=== PATIENT | female | born 1940 | race Caucasian/White ===

== ENCOUNTER 2024-10-05 17:15 | Inpatient (IN) | payer MEDICARE ==
--- NOTE | 2024-10-05 17:29 | ED ---
General Adult HPI - General Chief complaint: Shortness of Breath Stated complaint: Breathing is poor and confused Time Seen by Provider: 10/05/24 17:23 Source: patient, family, RN notes reviewed Mode of arrival: wheelchair Limitations: no limitations - History of Present Illness Initial comments: Patient is an 84-year-old female present to the emergency department with difficulty in breathing. Symptoms have progressed over the past few days. Patient has been discharged from the hospital just a week with COPD and CHF. Patient does have increasing leg edema again. Occasional cough. No fever. Family is concerned the patient has been a little bit confused as well. - Related Data Allergies Allergy/AdvReac Type Severity Reaction Status Date / Time No Known Allergies Allergy Verified 10/05/24 17:21 Review of Systems ROS Statement: Those systems with pertinent positive or pertinent negative responses have been documented in the HPI. ROS Other: All systems not noted in ROS Statement are negative. Constitutional: Denies: fever Eyes: Denies: eye pain ENT: Denies: ear pain Respiratory: Reports: cough, dyspnea Cardiovascular: Reports: edema. Denies: chest pain Endocrine: Reports: fatigue Neurological: Reports: as per HPI, confusion Past Medical History Past Medical History: No Reported History Past Surgical History: No Surgical Hx Reported Past Psychological History: No Psychological Hx Reported Smoking Status: Never smoker Past Alcohol Use History: None Reported Past Drug Use History: None Reported General Exam Limitations: no limitations General appearance: other (Drowsy.) Head exam: Present: normocephalic Eye exam: Present: normal appearance Neck exam: Present: normal inspection Respiratory exam: Present: respiratory distress, decreased breath sounds Cardiovascular Exam: Present: regular rate, normal rhythm GI/Abdominal exam: Present: soft. Absent: tenderness Extremities exam: Present: pedal edema. Absent: calf tenderness Neurological exam: Present: alert Psychiatric exam: Present: flat affect Skin exam: Present: normal color Course Vital Signs 10/05/24 10/05/24 10/05/24 17:19 17:21 17:31 Temperature 98 F Pulse Rate 94 Respiratory 10 L 30 H Rate Blood Pressure 118/60 O2 Sat by Pulse 46 L Oximetry Fraction of 50 Inspired Oxygen (FIO2) 10/05/24 10/05/24 10/05/24 17:55 17:57 18:51 Temperature 98.3 F Pulse Rate 93 81 Respiratory 26 H 18 Rate Blood Pressure 153/63 125/60 O2 Sat by Pulse 88 L 96 Oximetry Fraction of 60 Inspired Oxygen (FIO2) EKG Findings - EKG Results: EKG: interpreted by ERMD (PVC present.), sinus rhythm, normal axis, normal QRS, normal ST/T Procedures - ABG Interpretation Ph: 7.12 PCO2: 98 PO2: 67 Interpretation: respiratory acidosis Medical Decision Making - Medical Decision Making Was pt. sent in by a medical professional or institution (, ROBERT, SILO MAN, urgent care, hospital, or [facility]...) When possible be specific @ -No Did you speak to anyone other than the patient for history (EMS, parent, family, police, friend...)? What history was obtained from this source @ -Daughters present and provides majority of history as patient is unable to provide much history. Did you review nursing and triage notes (agree or disagree)? Why? @ -I reviewed and agree with nursing and triage notes Were old charts reviewed (outside hosp., previous admission, EMS record, old EKG, old radiological studies, urgent care reports/EKG's, [facility] records)? Report findings @ -No old charts were reviewed Differential Diagnosis (chest pain, altered mental status, abdominal pain women, abdominal pain men, vaginal bleeding, weakness, fever, dyspnea, syncope, headache, dizziness, GI bleed, back pain, seizure, CVA, palpatations, mental health, musculoskeletal)? @ -Differential Dyspnea: Coronary syndrome, arrhythmia, tamponade, asthma, COPD, pulmonary embolism, pneumonia, pneumothorax, pulmonary effusion, anaphylaxis, diabetic ketoacidosis, flailed chest, pulmonary contusion, diaphragmatic rupture, anemia, neuromuscul ar, this is not meant to be an all-inclusive list. EKG interpreted by me (3pts min.). @ -As above X-rays interpreted by me (1pt min.). @ -Chest x-ray shows mild cephalization CT interpreted by me (1pt min.). @ -None done U/S interpreted by me (1pt. min.). @ -None done What testing was considered but not performed or refused? (CT, X-rays, U/S, labs)? Why? @ -None What meds were considered but not given or refused? Why? @ -None Did you discuss the management of the patient with other professionals (professionals i.e. Dr., PA, SILO MAN, lab, RT, psych nurse, social science research assistant, java security architect, teacher, sheriffs officer, case consultant)? Give summary @ -Case discussed with practitioner Kaylee Back will admit covering Dr. Gonzalez. Case also discussed with Dr. Goldberg who will consult with critical care. Was smoking cessation discussed for >3mins.? @ -No Was critical care preformed (if so, how long)? @ -33 minutes critical care time Were there social determinants of health that impacted care today? How? (Homelessness, low income, unemployed, alcoholism, drug addiction, transportation, low edu. Level, literacy, decrease access to med. care, detention, rehab)? @ -No Was there de-escalation of care discussed even if they declined (Discuss DNR or withdrawal of care, Hospice)? DNR status @ -No What co-morbidities impacted this encounter? (DM, HTN, Smoking, COPD, CAD, Cancer, CVA, ARF, Chemo, Hep., AIDS, mental health diagnosis, sleep apnea, morbid obesity)? @ -COPD and CHF history Was patient admitted / discharged? Hospital course, mention meds given and route, prescriptions, significant lab abnormalities, going to OR and other pertinent info. @ -Patient presents with confusion and dyspnea. Patient placed on BiPAP. High CO2. Patient will be admitted with pulmonary consult. Patient reevaluated and updated. Admission orders written. Undiagnosed new problem with uncertain prognosis? @ -No Drug Therapy requiring intensive monitoring for toxicity (Heparin, Nitro, Insulin, Cardizem)? @ -No Were any procedures done? @ -No Diagnosis/symptom? @ -Respiratory failure Acute, or Chronic, or Acute on Chronic? @ -Acute Uncomplicated (without systemic symptoms) or Complicated (systemic symptoms)? @ -Complicated with hypercarbia Side effects of treatment? @ -No Exacerbation, Progression, or Severe Exacerbation? @ -No Poses a threat to life or bodily function? How? (Chest pain, [place], [place], pneumonia, PE, COPD, DKA, ARF, appy, cholecystitis, CVA, Diverticulitis, Homicidal, Suicidal, threat to staff... and all critical care pts) @ -Threat to respiratory function and life - Lab Data Result diagrams: 10/05/24 17:40 10/05/24 17:40 Lab Results 10/05/24 10/05/24 10/05/24 Range/Units 17:40 17:40 17:40 WBC 56.04 H* (4.50-10.00) 10*3/uL RBC 4.33 (4.10-5.20) 10*6/uL Hgb 11.3 L (12.0-15.0) g/dL Hct 40.2 (37.2-46.3) % MCV 92.8 (80.0-97.0) fL MCH 26.1 L (27.0-32.0) pg MCHC 28.1 L (32.0-37.0) g/dL Plt Count 344 (140-440) 10*3/uL MPV 11.9 (9.5-12.2) fL Immature Gran % (Auto) 1.9 % Neutrophils % (Manual) 95 % Band Neuts % (Manual) 3 % Monocytes % (Manual) 2 % Immature Gran # 1.09 H (0.00-0.04) 10*3/uL Neutrophils # (Manual) 54.91 H (1.3-7.7) k/uL Monocytes # (Manual) 1.12 H (0-1.0) k/uL Nucleated RBCs 0 (0-0) /100 WBC Manual Slide Review Performed Stomatocytes Present PT 10.9 (10.0-12.5) sec INR 1.0 (<1.2) APTT 23.6 (22.0-30.0) sec Sample Site ABG pH (7.35-7.45) ABG pCO2 (35-45) mmHg ABG pO2 (83-108) mmHg ABG O2 Saturation (94-97) % Wilmar Test Hemoglobin (11.4-16.0) gm/dL FiO2 % Sodium 137 (137-145) mmol/L Potassium 5.0 (3.5-5.1) mmol/L Chloride 91 L (98-107) mmol/L Carbon Dioxide 35 H (22-30) mmol/L Anion Gap 11 mmol/L BUN 26 H (7-17) mg/dL Creatinine 0.73 (0.52-1.04) mg/dL Est GFR (CKD-EPI)AfAm 89 (>60 ml/min/1.73 sqM) Est GFR (CKD-EPI)NonAf 77 (>60 ml/min/1.73 sqM) Glucose 214 H (74-99) mg/dL Plasma Lactic Acid George (0.7-2.0) mmol/L Calcium 9.5 (8.4-10.2) mg/dL Magnesium 2.0 (1.6-2.3) mg/dL Total Bilirubin 0.8 (0.2-1.3) mg/dL AST 73 H (14-36) U/L ALT 48 H (4-34) U/L Alkaline Phosphatase 77 (38-126) U/L Troponin I (0.000-0.034) ng/mL NT-Pro-B Natriuret Pep 3020 pg/mL Total Protein 6.8 (6.3-8.2) g/dL Albumin 4.3 (3.5-5.0) g/dL Influenza Type A (PCR) (Not Detectd) Influenza Type B (PCR) (Not Detectd) RSV (PCR) (Not Detectd) SARS-CoV-2 (PCR) (Not Detectd) 10/05/24 10/05/24 10/05/24 Range/Units 17:40 17:40 17:40 WBC (4.50-10.00) 10*3/uL RBC (4.10-5.20) 10*6/uL Hgb (12.0-15.0) g/dL Hct (37.2-46.3) % MCV (80.0-97.0) fL MCH (27.0-32.0) pg MCHC (32.0-37.0) g/dL Plt Count (140-440) 10*3/uL MPV (9.5-12.2) fL Immature Gran % (Auto) % Neutrophils % (Manual) % Band Neuts % (Manual) % Monocytes % (Manual) % Immature Gran # (0.00-0.04) 10*3/uL Neutrophils # (Manual) (1.3-7.7) k/uL Monocytes # (Manual) (0-1.0) k/uL Nucleated RBCs (0-0) /100 WBC Manual Slide Review Stomatocytes PT (10.0-12.5) sec INR (<1.2) APTT (22.0-30.0) sec Sample Site ABG pH (7.35-7.45) ABG pCO2 (35-45) mmHg ABG pO2 (83-108) mmHg ABG O2 Saturation (94-97) % Wilmar Test Hemoglobin (11.4-16.0) gm/dL FiO2 % Sodium (137-145) mmol/L Potassium (3.5-5.1) mmol/L Chloride (98-107) mmol/L Carbon Dioxide (22-30) mmol/L Anion Gap mmol/L BUN (7-17) mg/dL Creatinine (0.52-1.04) mg/dL Est GFR (CKD-EPI)AfAm (>60 ml/min/1.73 sqM) Est GFR (CKD-EPI)NonAf (>60 ml/min/1.73 sqM) Glucose (74-99) mg/dL Plasma Lactic Acid George 4.2 H* (0.7-2.0) mmol/L Calcium (8.4-10.2) mg/dL Magnesium (1.6-2.3) mg/dL Total Bilirubin (0.2-1.3) mg/dL AST (14-36) U/L ALT (4-34) U/L Alkaline Phosphatase (38-126) U/L Troponin I 0.080 H* (0.000-0.034) ng/mL NT-Pro-B Natriuret Pep pg/mL Total Protein (6.3-8.2) g/dL Albumin (3.5-5.0) g/dL Influenza Type A (PCR) Not Detected (Not Detectd) Influenza Type B (PCR) Not Detected (Not Detectd) RSV (PCR) Not Detected (Not Detectd) SARS-CoV-2 (PCR) Not Detected (Not Detectd) 10/05/24 Range/Units 17:44 WBC (4.50-10.00) 10*3/uL RBC (4.10-5.20) 10*6/uL Hgb (12.0-15.0) g/dL Hct (37.2-46.3) % MCV (80.0-97.0) fL MCH (27.0-32.0) pg MCHC (32.0-37.0) g/dL Plt Count (140-440) 10*3/uL MPV (9.5-12.2) fL Immature Gran % (Auto) % Neutrophils % (Manual) % Band Neuts % (Manual) % Monocytes % (Manual) % Immature Gran # (0.00-0.04) 10*3/uL Neutrophils # (Manual) (1.3-7.7) k/uL Monocytes # (Manual) (0-1.0) k/uL Nucleated RBCs (0-0) /100 WBC Manual Slide Review Stomatocytes PT (10.0-12.5) sec INR (<1.2) APTT (22.0-30.0) sec Sample Site lbrac ABG pH 7.13 L* (7.35-7.45) ABG pCO2 >98 H* (35-45) mmHg ABG pO2 67 L (83-108) mmHg ABG O2 Saturation 86.4 L (94-97) % Wilmar Test Yes Hemoglobin 10.8 L (11.4-16.0) gm/dL FiO2 50 % Sodium (137-145) mmol/L Potassium (3.5-5.1) mmol/L Chloride (98-107) mmol/L Carbon Dioxide (22-30) mmol/L Anion Gap mmol/L BUN (7-17) mg/dL Creatinine (0.52-1.04) mg/dL Est GFR (CKD-EPI)AfAm (>60 ml/min/1.73 sqM) Est GFR (CKD-EPI)NonAf (>60 ml/min/1.73 sqM) Glucose (74-99) mg/dL Plasma Lactic Acid George (0.7-2.0) mmol/L Calcium (8.4-10.2) mg/dL Magnesium (1.6-2.3) mg/dL Total Bilirubin (0.2-1.3) mg/dL AST (14-36) U/L ALT (4-34) U/L Alkaline Phosphatase (38-126) U/L Troponin I (0.000-0.034) ng/mL NT-Pro-B Natriuret Pep pg/mL Total Protein (6.3-8.2) g/dL Albumin (3.5-5.0) g/dL Influenza Type A (PCR) (Not Detectd) Influenza Type B (PCR) (Not Detectd) RSV (PCR) (Not Detectd) SARS-CoV-2 (PCR) (Not Detectd) Critical Care Time Critical Care Time: Yes Disposition Clinical Impression: Acute exacerbation of chronic obstructive pulmonary disease, Acute respiratory failure Disposition: ADMITTED IP TO THIS HOSP Condition: Serious Is patient prescribed a controlled substance at d/c from ED?: No Referrals: Garcia Gonzalez III, MD [Primary Care Provider] - 1-2 days Time of Disposition: 19:44
[2024-10-05 17:48] LABS: ABG PO2 67 mmHg (83-108); Allen Test Performed? Yes
[2024-10-05] MEDS: methylPREDNISolone SOD SUCCI 125 MG/2 ML VIAL IV STA (17:48)
[2024-10-05 17:55] LABS: HCT 40.2 % (37.2-46.3); HGB 11.3 g/dL (12.0-15.0); MCH 26.1 pg (27.0-32.0); MCHC 28.1 g/dL (32.0-37.0); MCV 92.8 fL (80.0-97.0); Platelet Count 344 10*3/uL (140-440); RBC 4.33 10*6/uL (4.10-5.20); RDW 16.5 % (11.5-14.5)
[2024-10-05 17:57] LABS: ABG PCO2 >98 mmHg (35-45); ABG PH 7.13 (7.35-7.45)
[2024-10-05 18:08] LABS: WBC 56.04 10*3/uL (4.50-10.00)
[2024-10-05 18:10] LABS: INR 1.0 (<1.2); Partial Thromboplastin Time 23.6 sec (22.0-30.0); Prothrombin Time 10.9 sec (10.0-12.5)
[2024-10-05 18:19] LABS: ALT 48 U/L (4-34); AST 73 U/L (14-36); African American GFR (CKD) 89 (>60 ml/min/1.73 sqM); Albumin 4.3 g/dL (3.5-5.0); Alkaline Phosphatase 77 U/L (38-126); Anion Gap 11 mmol/L; Blood Urea Nitrogen 26 mg/dL (7-17); Calcium 9.5 mg/dL (8.4-10.2); Carbon Dioxide 35 mmol/L (22-30); Chloride 91 mmol/L (98-107); Glucose 214 mg/dL (74-99); Magnesium 2.0 mg/dL (1.6-2.3); Non-African American GFR(CKD) 77 (>60 ml/min/1.73 sqM); Potassium 5.0 mmol/L (3.5-5.1); Sodium 137 mmol/L (137-145); Total Protein 6.8 g/dL (6.3-8.2)
[2024-10-05 18:26] LABS: NT-Pro-B-Type Natriuretic Pept 3020 pg/mL
[2024-10-05 18:36] LABS: RSV Not Detected (Not Detectd)
--- NOTE | 2024-10-05 18:39 | XR ---
EXAMINATION TYPE: XR chest 1V portable DATE OF EXAM: 10/05/2024 6:22 PM COMPARISON: Chest radiographs from TECHNIQUE: XR chest 1V portable Portable AP radiograph of the chest. CLINICAL INDICATION:Female, 84 years old with history of diego; FINDINGS: Lungs/Pleura: There is no evidence of pleural effusion, focal consolidation, or pneumothorax. Diffus e interstitial prominence. Heart/mediastinum: Cardiomediastinal silhouette is enlarged. Atherosclerotic calcifications are seen in the aorta. Musculoskeletal: No acute osseous pathology. IMPRESSION: Cardiomegaly and diffuse interstitial prominence. Correlate with BNP for congestive heart failure. [facility], , 10/05/2024 6:36 PM
[2024-10-05] MEDS: AZITHROMYCIN 500 MG in SODIUM CHLORIDE 0.9% 250 ML IVPB STA (18:43)
[2024-10-05 19:08] LABS: Monocytes # (M) 1.12 k/uL (0-1.0); Neutrophils # (M) 54.91 k/uL (1.3-7.7); Neutrophils % (M) 95 %; Total Cells Counted 100
[2024-10-05 19:09] LABS: Stomatocytes Present
[2024-10-05] MEDS ORDERED: IPRATROPIUM-ALBUTEROL 3 ML NEB INHALATION PRN (19:45)
[2024-10-05] MEDS ORDERED: NALOXONE 0.4 MG/ML 1 ML VIAL IVP PRN (19:45)
[2024-10-05 20:03] LABS: ABG PO2 92 mmHg (83-108); Allen Test Performed? Yes
[2024-10-05 20:13] LABS: ABG PH 7.04 (7.35-7.45)
[2024-10-05 20:14] LABS: ABG PCO2 >98 mmHg (35-45)
[2024-10-05 23:37] LABS: Allen Test Performed? Yes
[2024-10-05 23:38] LABS: ABG PO2 84 mmHg (83-108)
[2024-10-05 23:54] LABS: ABG PCO2 >98 mmHg (35-45); ABG PH 7.01 (7.35-7.45)
[2024-10-06] MEDS: PROPOFOL 10 MG/ML 20 ML VIAL IV ONE (00:32)
[2024-10-06] MEDS: methylPREDNISolone SOD SUCCI 125 MG/2 ML VIAL IV SCH (00:33)
[2024-10-06] MEDS: FUROSEMIDE 10 MG/ML 2 ML VIAL IV SCH (00:46)
[2024-10-06 00:54] LABS: ABG HCO3 28 mmol/L (21-25); ABG PO2 71 mmHg (83-108); ABG TCO2 31 mmol/L (19-24); Allen Test Performed? Yes
--- NOTE | 2024-10-06 01:37 | P.CNPUL ---
History of Present Illness Consult date: 10/06/24 Requesting physician: Michele Farrell Reason for consult: other (Respiratory failure) Chief complaint: Altered mental status, shortness of breath History of present illness: Patient is an 84-year-old female with little documented past medical history. She was living in [place] and has recently moved back to [place]. Her is recently . She has no children. She does have a niece who was contacted and provided limited information. Apparently, patient was recently hospitalized at [facility] for acute COPD and CHF exacerbation and released last week. Presents to the emergency department yesterday evening with increased work of breathing increased. Leg edema was noted. Family was concerned that the patient was confused. ABG consistent with severe hypoxemic and hypercapnic respiratory failure. She was placed on BiPAP in the ED. Chest x-ray showing enlarged cardiac silhouette with diffuse interstitial prominence. NT-proBNP was elevated at 3020. Additional labs including a CBC with a severely elevated WBC count of 56, hemoglobin 11.3 g/dL, platelets 344. CMP: Sodium 137, potassium 5, chloride 91, serum bicarb 35, BUN 26, creatinine 0.73, glucose 214. Lactic was 4.2 and is down to 2. LFTs mildly elevated. Troponin 0.08. Viral 4 Plex negative for influenza A/B, RSV, COVID. Patient currently being evaluated in the emergency department trauma bay 3. She is difficult to arouse, only grimaces to painful stimuli. I asked for repeat blood gas which does not show any significant improvement in her acid-base balance, PO2 was 84, pCO2 greater than 98, pH of 7.01. She is on BiPAP with settings 14/7 and FiO2 of 60%. Tidal volumes are low around 150 cc. I did call the patient's listed next of kin, who is a niece, and they previously discussed that the patient is a full code and okay with intubation. Review of Systems ROS unobtainable: due to mental status Past Medical History Smoking Status: Unknown if ever smoked Past Alcohol Use History: Unable to Obtain Past Drug Use History: Unable to Obtain Medications and Allergies Home Medications Medication Instructions Recorded Confirmed Type Donepezil [Aricept] 5 mg PO HS 10/05/24 10/05/24 History Furosemide [Lasix] 20 mg PO DAILY 10/05/24 10/05/24 History Losartan [Cozaar] 25 mg PO DAILY 10/05/24 10/05/24 History Pantoprazole [Protonix] 40 mg PO DAILY 10/05/24 10/05/24 History Potassium Chloride ER [K-Dur 10] 10 meq PO DAILY 10/05/24 10/05/24 History predniSONE See Taper PO DAILY 10/05/24 10/05/24 History Allergies Allergy/AdvReac Type Severity Reaction Status Date / Time No Known Allergies Allergy Verified 10/05/24 20:27 Physical Exam Vitals: Vital Signs Temp Pulse Resp BP Pulse Ox FiO2 10/06/24 00:37 60 10/06/24 00:14 78 19 147/62 98 10/05/24 23:44 50 10/05/24 22:25 81 28 H 148/74 95 10/05/24 21:01 80 24 147/76 94 L 10/05/24 20:11 50 10/05/24 18:51 81 18 125/60 96 10/05/24 17:57 60 10/05/24 17:55 98.3 F 93 26 H 153/63 88 L 10/05/24 17:31 50 10/05/24 17:21 30 H 10/05/24 17:19 98 F 94 10 L 118/60 46 L Intake and Output 10/05/24 10/05/24 10/06/24 14:59 22:59 06:59 Intake Total 0.093 Balance 0.093 Intake: Intake, IV Titration 0.093 Amount propofoL 1,000 mg In 0.093 Empty Bag 1 bag @ 15 MCG/ KG/MIN 5.593 mls/hr IV . [id number] [facility] Rx#:[id number] Other: Weight 62.142 kg GENERAL EXAM: Stuporous, 84-year-old female, on BiPAP with settings 14/7 FiO2 of 60%. Generating tidal volumes of 100 to 150 cc. HEAD: Normocephalic and atraumatic EYES: Normal reaction of pupils, equal size. NOSE: Clear with pink turbinates. THROAT: No erythema or exudates. NECK: No masses, no JVD. CHEST: No chest wall deformity. LUNGS: Equal air entry with basilar crackles. On BiPAP as outlined above CVS: S1 and S2 normal with no audible murmur, regular rhythm. No extra heart sounds ABDOMEN: No hepatosplenomegaly, active bowel sounds, no guarding or rigidity. SPINE: No scoliosis or deformity SKIN: No rashes CENTRAL NERVOUS SYSTEM: Only grimaces to painful stimuli, no focal deficits, withdraws to pain in all 4 extremities. EXTREMITIES: There is no peripheral edema, clubbing, or cyanosis. Peripheral pulses are intact. Results - Laboratory Findings CBC and BMP: 10/05/24 17:40 10/05/24 17:40 ABG ABG pH 7.01 (7.35-7.45) L* 10/05/24 23:33 ABG pCO2 >98 mmHg (35-45) H* 10/05/24 23:33 ABG pO2 84 mmHg (83-108) 10/05/24 23:33 ABG O2 Saturation 92.1 % (94-97) L 10/05/24 23:33 PT/INR, D-dimer PT 10.9 sec (10.0-12.5) 10/05/24 17:40 INR 1.0 (<1.2) 10/05/24 17:40 Abnormal lab findings: Abnormal Labs 10/05/24 10/05/24 10/05/24 17:40 17:40 17:40 WBC 56.04 H* Hgb 11.3 L MCH 26.1 L MCHC 28.1 L Immature Gran # 1.09 H Neutrophils # (Manual) 54.91 H Monocytes # (Manual) 1.12 H ABG pH ABG pCO2 ABG pO2 ABG O2 Saturation Hemoglobin Chloride 91 L Carbon Dioxide 35 H BUN 26 H Glucose 214 H Plasma Lactic Acid George 4.2 H* AST 73 H ALT 48 H Troponin I 10/05/24 10/05/24 10/05/24 17:40 17:44 19:59 WBC Hgb MCH MCHC Immature Gran # Neutrophils # (Manual) Monocytes # (Manual) ABG pH 7.13 L* 7.04 L* ABG pCO2 >98 H* >98 H* ABG pO2 67 L ABG O2 Saturation 86.4 L 93.3 L Hemoglobin 10.8 L 11.0 L Chloride Carbon Dioxide BUN Glucose Plasma Lactic Acid George AST ALT Troponin I 0.080 H* 10/05/24 23:33 WBC Hgb MCH MCHC Immature Gran # Neutrophils # (Manual) Monocytes # (Manual) ABG pH 7.01 L* ABG pCO2 >98 H* ABG pO2 ABG O2 Saturation 92.1 L Hemoglobin Chloride Carbon Dioxide BUN Glucose Plasma Lactic Acid George AST ALT Troponin I - Diagnostic Findings Chest x-ray: image reviewed Assessment and Plan Assessment: Acute hypoxemic and hypercapnic respiratory failure, failed BiPAP trial, and is going to be intubated and placed on the mechanical ventilator. Chest x-ray showing enlarged cardiac silhouette with diffuse interstitial prominence. NT- proBNP was elevated at 3020. Acute CHF exacerbation, unknown ejection fraction Acute COPD exacerbation Severe leukocytosis Lactic acidemia, improved Elevated troponins, likely related supply/demand mismatch History of hypertension Plan: I did have a discussion with the patient's niece who is listed as next of kin. Patient's is and she has no children. We are unable to get a hold of any siblings at this time. She states that she has been making medical decisions for her aunt and patient is to be a full code. BIOMEDICAL SCIENTIST was called and performed rapid sequence intubation. Original ventilator settings, assist-control, respiratory rate 20, tidal volume 400, FiO2 100%, PEEP of 5 Respiratory rate increased to 26 breaths/min, wean FiO2 as tolerated Repeat ABG showing some improvement in patient's acid-base balance DuoNebs [id number], formoterol inhalation, budesonide inhalation, and continue IV Solu-Medrol Use propofol for sedation Add empiric antibiotics Obtain sputum culture Viral 4 Plex negative for influenza A/B, SV, COVID Add Lasix 20 mg twice daily Transthoracic echocardiogram if more recent study not available DVT prophylaxis with subcu heparin GI prophylaxis: Protonix Case will be reviewed with my supervising physician, additional recommendations forthcoming I have personally seen and examined the patient, performed the documentation and the assessment and plan as written. Number of minutes spent on the visit:20 Time with Patient: Greater than 30
--- NOTE | 2024-10-06 02:00 | XR ---
EXAM: XR Chest, 1 View CLINICAL HISTORY: ITS.REASON XR Reason: Tube placement TECHNIQUE: Frontal view of the chest. COMPARISON: 10/05/2024 IMPRESSION: Tip of endotracheal tube is about 3.8 cm above the fanta. Side hole of enteric tube is in the body of the stomach. No substantial change otherwise.
[2024-10-06] MEDS: SODIUM CHLORIDE 0.9% 1,000 ML IV ONE (03:33)
[2024-10-06 06:01] LABS: ABG HCO3 37 mmol/L (21-25); ABG PCO2 53 mmHg (35-45); ABG PH 7.45 (7.35-7.45); ABG TCO2 39 mmol/L (19-24); Allen Test Performed? Yes
[2024-10-06 06:47] LABS: ABG PCO2 77 mmHg (35-45); ABG PH 7.18 (7.35-7.45)
[2024-10-06 06:48] LABS: ABG PO2 420 mmHg (83-108)
[2024-10-06] MEDS: IPRATROPIUM-ALBUTEROL 3 ML NEB INHALATION STA (08:01)
[2024-10-06] MEDS: IPRATROPIUM-ALBUTEROL 3 ML NEB INHALATION SCH (08:01)
[2024-10-06] MEDS: BUDESONIDE 1 MG/2 ML NEBU INHALATION SCH (08:07)
[2024-10-06] MEDS: FORMOTEROL FUMARATE 20 MCG/2 ML NEBU INHALATION SCH (08:07)
--- NOTE | 2024-10-06 08:12 | XR ---
EXAMINATION TYPE: XR chest 1V portable DATE OF EXAM: 10/06/2024 5:38 AM COMPARISON: 10/06/2024 CLINICAL INDICATION: Female, 84 years old with history of Tube placement, FINDINGS: Indwelling tubes and catheters are unchanged. Scattered upper lobe patchy densities persist unchanged. Stable appearance of the cardio-mediastinal structures at this time. IMPRESSION: 1. Stable portable chest. Clinical correlation and follow up until resolution is recommended. [facility], , 10/06/2024 8:10 AM
[2024-10-06] MEDS: CHLORHEXIDINE GLUCONATE 15 ML CUP MUCOUS MEM SCH (09:38)
[2024-10-06 11:12] LABS: Glucose,Whole Blood 120 mg/dL (70-110)
--- NOTE | 2024-10-06 13:59 | OP ---
OPERATIVE REPORT DATE OF SERVICE : PROCEDURE PERFORMED: Placement of a right radial arterial line. PREOPERATIVE DIAGNOSIS: Acute hypoxic and hypercapnic respiratory failure. POSTOPERATIVE DIAGNOSIS: Acute hypoxic and hypercapnic respiratory failure. ANESTHESIA USED: None deployed. PROCEDURE IN DETAIL: The patient was placed in a supine position. Right wrist was prepared in a sterile fashion. Drapes were applied. The right radial artery was palpated, easily cannulated and a guidewire was placed. A Cook's catheter was inserted over the guidewire, the guidewire was removed. Good blood flow, good waveform. Line was secured using 3.0 silk sutures. No complications. Procedure was well tolerated. MMODL / IJN: [id number] /
[2024-10-06 14:48] LABS: ABG HCO3 39 mmol/L (21-25); ABG PCO2 58 mmHg (35-45); ABG PH 7.44 (7.35-7.45); ABG PO2 86 mmHg (83-108); ABG TCO2 41 mmol/L (19-24)
[2024-10-06 14:51] LABS: Allen Test Performed? no
[2024-10-06 17:54] LABS: Glucose,Whole Blood 159 mg/dL (70-110)
[2024-10-06] MEDS: AZITHROMYCIN 500 MG in SODIUM CHLORIDE 0.9% 250 ML IVPB SCH (20:00)
--- NOTE | 2024-10-06 21:53 | HP ---
HISTORY AND PHYSICAL CHIEF COMPLAINT: Shortness of breath and change in mental status. HISTORY OF PRESENT ILLNESS: This 84-year-old with a past medical history of no significant medical issues, recently moved back to [place]. Apparently, the patient has presented with shortness of breath and change in mental status. The patient was recently admitted with COPD and CHF. The patient had features of acute hypoxic respiratory failure. The viral titers are negative, and the patient admitted to ICU and being mechanically ventilated at this time. There is some interstitial prominence noted. The patient failed BiPAP trial. The patient is unable to give a coherent history. Most history is taken by discussion with staff, review of chart at this time. PAST MEDICAL HISTORY: History of COPD and CHF. Rest of the history and chart is also reviewed. MEDICATIONS: Prednisone taper. Doses and rest of medications reviewed. ALLERGIES: None. FAMILY HISTORY: Could not could not be taken. SOCIAL HISTORY: Could not could not be taken. REVIEW OF SYSTEMS: Could not could not be taken. PHYSICAL EXAMINATION: VITAL SIGNS: Pulse is 81, blood pressure 118/64, and respirations 20. HEENT: Conjunctivae normal. NECK: No JVD. CARDIOVASCULAR: S1, S2. RESPIRATIONS: Breath sounds diminished at the bases. No rhonchi. No crackles. ABDOMEN: Soft. LEGS: No edema NERVOUS SYSTEM: Nonfocal. LABORATORY DATA: Noted. ASSESSMENT: 1. Shortness of breath and acute hypoxic respiratory failure, possibly secondary to chronic obstructive pulmonary disease and congestive heart failure acute exacerbation. 2. Elevated WBC. 3. Possible acute tracheobronchitis and possible pneumonia. 4. Troponin, 0.080. 5. Lactic acidemia. 6. Elevated troponin, possibly from supply-demand mismatch. RECOMMENDATIONS: Recommend to continue current management and continue symptomatic treatment. Continue with broad-spectrum IV antibiotics, bronchodilators, IV steroids. I would also recommend 2D echo with Doppler and Cardiology consultation also to complete the workup. The BNP is 3020 at this time. Viral titers are negative. We will obtain the cultures also. See orders for details. MMODL / IJN: [id number] /
[2024-10-07] MEDS ORDERED: ACETAMINOPHEN TAB 325 MG TAB PO PRN (00:05)
[2024-10-07 05:17] LABS: Basophils # (A) 0.06 10*3/uL (0.00-0.10); Basophils % (A) 0.2 %; Eosinophils # (A) 0.00 10*3/uL (0.04-0.35); Eosinophils % (A) 0.0 %; HCT 29.9 % (37.2-46.3); Lymphocytes # (A) 0.39 10*3/uL (0.90-5.00); Lymphocytes % (A) 1.3 %; MCH 25.7 pg (27.0-32.0); MCHC 30.1 g/dL (32.0-37.0); Monocytes # (A) 0.49 10*3/uL (0.20-1.00); Monocytes % (A) 1.7 %; Neutrophils # (A) 28.19 10*3/uL (1.80-7.70); Neutrophils % (A) 95.7 %; Platelet Count 287 10*3/uL (140-440); RBC 3.50 10*6/uL (4.10-5.20); RDW 17.1 % (11.5-14.5); WBC 29.46 10*3/uL (4.50-10.00)
[2024-10-07 05:25] LABS: HGB 9.0 g/dL (12.0-15.0); MCV 85.4 fL (80.0-97.0)
[2024-10-07 05:32] LABS: African American GFR (CKD) 54 (>60 ml/min/1.73 sqM); Anion Gap 7 mmol/L; Blood Urea Nitrogen 43 mg/dL (7-17); Calcium 9.1 mg/dL (8.4-10.2); Carbon Dioxide 37 mmol/L (22-30); Chloride 91 mmol/L (98-107); Glucose 135 mg/dL (74-99); Non-African American GFR(CKD) 47 (>60 ml/min/1.73 sqM); Potassium 3.6 mmol/L (3.5-5.1); Sodium 135 mmol/L (137-145)
[2024-10-07] MEDS ORDERED: Potassium Replacement Protocol 1 EACH MISC MISCELLANE PRN (06:04)
[2024-10-07 06:05] LABS: ABG PCO2 56 mmHg (35-45); ABG PH 7.46 (7.35-7.45); ABG PO2 82 mmHg (83-108); ABG TCO2 42 mmol/L (19-24)
[2024-10-07 06:18] LABS: ABG HCO3 40 mmol/L (21-25); Allen Test Performed? No
[2024-10-07] MEDS: POTASSIUM BICARBONATE/CIT AC 20 MEQ TABLET.EFF NG-TUBE SCH (06:47)
--- NOTE | 2024-10-07 07:43 | P.CRDCN ---
History of Present Illness Consult date: 10/07/24 History of present illness: The patient is an 84-year-old female patient who we consulted to see in the ICU for heart failure. Currently the patient is intubated on mechanical ventilation. The patient presented to the emergency department with progressive shortness of breath and she was found to be hypoxic and hypercapnic. She did not respond to BiPAP. Subsequently she was intubated and placed on mechanical ventilation. She is known to have COPD and CHF of unknown etiology. Echocardiogram was performed and still pending. No indication that the patient was experiencing any symptoms of chest pain or chest discomfort. She was noted to have bilateral lower extremities pitting edema. The chest x-ray showed finding consistent with COPD with small bilateral pleural effusion. The patient was placed on Lasix IV and also she was placed on antibiotic and she is getting treated for COPD/pneumonia. No previous medical records in EMR at this point. The echo was performed last night we will follow-up on that. Blood work showed anemia with a hemoglobin around 9. No NT-proBNP was ordered. Sodium and potassium are within normal limits. GFR is at 54. The physical examination is remarkable for regular rhythm with a systolic murmur at the right upper sternal border and bilateral rhonchi and also bilateral lower extremities pitting edema was noted. Since the patient was placed on Lasix she has been responding well. Assessment Acute hypoxic and hypercapnic respiratory failure secondary to a combination of COPD and CHF CHF exacerbation of unknown etiology Multiple comorbid conditions Plan Follow-up on the echocardiogram which was performed yesterday Continue monitor the kidney function and electrolytes Continue Lasix for additional 24 hours Continue the treatment for COPD and possible underlying pneumonia Further recommendation to follow Past Medical History Past Medical History: No Reported History History of Any Multi-Drug Resistant Organisms: Unobtainable Past Surgical History: No Surgical Hx Reported Past Psychological History: No Psychological Hx Reported Smoking Status: Former smoker Past Alcohol Use History: Unable to Obtain Past Drug Use History: Unable to Obtain Medications and Allergies Home Medications Medication Instructions Recorded Confirmed Type Donepezil [Aricept] 5 mg PO HS 10/05/24 10/05/24 History Furosemide [Lasix] 20 mg PO DAILY 10/05/24 10/05/24 History Losartan [Cozaar] 25 mg PO DAILY 10/05/24 10/05/24 History Pantoprazole [Protonix] 40 mg PO DAILY 10/05/24 10/05/24 History Potassium Chloride ER [K-Dur 10] 10 meq PO DAILY 10/05/24 10/05/24 History predniSONE See Taper PO DAILY 10/05/24 10/05/24 History Allergies Allergy/AdvReac Type Severity Reaction Status Date / Time No Known Allergies Allergy Verified 10/05/24 20:27 Physical Exam Vitals: Vital Signs Temp Pulse Resp BP Pulse Ox FiO2 10/07/24 07:00 58 L 18 115/56 96 10/07/24 06:00 58 L 18 99/49 99 10/07/24 05:00 60 18 104/94 100 10/07/24 04:33 40 10/07/24 04:00 69 18 106/57 98 40 10/07/24 03:00 65 18 113/51 99 10/07/24 02:00 65 18 106/57 100 10/07/24 01:00 62 18 98/42 99 10/07/24 00:49 40 10/07/24 00:05 70 18 98/44 98 10/07/24 00:00 98.1 F 67 18 109/50 98 40 10/06/24 23:00 78 18 94/43 99 10/06/24 22:00 90 25 H 98 10/06/24 21:00 81 19 92 L 10/06/24 20:56 82 10/06/24 20:40 80 10/06/24 20:37 40 10/06/24 20:00 98.7 F 78 20 98 50 10/06/24 19:00 73 18 108/49 100 10/06/24 18:00 81 18 115/57 98 10/06/24 16:00 98.5 F 87 18 98 40 10/06/24 15:06 76 10/06/24 15:00 86 18 118/62 95 10/06/24 14:49 73 10/06/24 14:36 40 10/06/24 14:00 73 18 118/54 96 10/06/24 13:00 71 18 97/67 95 10/06/24 12:00 98.8 F 73 19 106/57 97 40 10/06/24 11:00 81 26 H 119/65 10/06/24 10:30 78 27 H 106/57 10/06/24 10:00 76 26 H 97/49 10/06/24 09:30 80 27 H 100/51 10/06/24 09:00 72 26 H 90/49 10/06/24 08:30 98.7 F 73 26 H 110/55 98 40 10/06/24 08:28 72 10/06/24 08:07 74 10/06/24 08:06 40 10/06/24 08:00 40 10/06/24 07:47 40 Intake and Output 10/06/24 10/07/24 10/07/24 22:59 06:59 14:59 Intake Total 477.589 288.826 13 Output Total 260 340 30 Balance 217.589 -51.174 -17 Intake: IV 339 104 13 0.9 80 80 10 Azithromycin 500 mg In 250 Sodium Chloride 0.9% 250 ml @ 250 mls/hr IVPB DAILY [facility] Rx#:[id number] Pressure Bag 9 24 3 Intake, IV Titration 138.589 184.826 Amount propofoL 1,000 mg In 138.589 184.826 Empty Bag 1 bag @ 15 MCG/ KG/MIN 5.593 mls/hr IV . [id number] [facility] Rx#:[id number] Output: Urine 260 340 30 Other: Voiding Method Indwelling Catheter Indwelling Catheter Weight 73.4 kg ABP, PAP, CO, CI - Last 8 Hours Arterial Blood Pressure 123/49 Arterial Blood Pressure 106/43 Arterial Blood Pressure 110/48 Results 10/07/24 04:33 10/07/24 04:33 CBC 10/07/24 Range/Units 04:33 WBC 29.46 H (4.50-10.00) 10*3/uL RBC 3.50 L (4.10-5.20) 10*6/uL Hgb 9.0 L D (12.0-15.0) g/dL Hct 29.9 L (37.2-46.3) % Plt Count 287 (140-440) 10*3/uL Comprehensive Metabolic Panel 10/07/24 Range/Units 04:33 Sodium 135 L (137-145) mmol/L Potassium 3.6 (3.5-5.1) mmol/L Chloride 91 L (98-107) mmol/L Carbon Dioxide 37 H (22-30) mmol/L BUN 43 H (7-17) mg/dL Creatinine 1.11 H (0.52-1.04) mg/dL Glucose 135 H (74-99) mg/dL Calcium 9.1 (8.4-10.2) mg/dL Current Medications Generic Name Dose Route Start Last Admin Trade Name Freq PRN Reason Stop Dose Admin Acetaminophen 650 mg 10/07/24 00:05 Acetaminophen Tab 325 Mg Tab PO Q6HR PRN Fever and/ or Pain Albuterol/Ipratropium 3 ml 10/05/24 20:00 10/06/24 20:39 Ipratropium-Albuterol 3 Ml Neb INHALATION 3 ml RT-QID [facility] Administration Albuterol/Ipratropium 3 ml 10/05/24 19:45 Ipratropium-Albuterol 3 Ml Neb INHALATION RT-Q2H PRN Shortness Of Breath Or Wheezing Budesonide 1 mg 10/06/24 08:00 10/06/24 20:40 Budesonide 1 Mg/2 Ml Nebu INHALATION 1 mg RT-BID JANEY Administration Chlorhexidine Gluconate 15 ml 10/06/24 09:00 10/06/24 20:00 Chlorhexidine Gluconate 15 Ml Cup MUCOUS MEM 15 ml BID JANEY Administration Formoterol Fumarate 20 mcg 10/06/24 08:00 10/06/24 20:40 Formoterol Fumarate 20 Mcg/2 Ml Nebu INHALATION 20 mcg RT-BID JANEY Administration Furosemide 20 mg 10/05/24 23:45 10/06/24 20:01 Furosemide 10 Mg/Ml 2 Ml Vial IV 20 mg Q12HR JANE[facility] Administration Heparin Sodium (Porcine) 5,000 unit 10/07/24 09:00 Heparin Sodium,Porcine 5,000 Unit/Ml 1 Ml Vial SQ Q12HR [facility] Propofol 1,000 mg/ IV Solution 100 mls @ 5.593 mls/hr 10/05/24 23:45 10/07/24 06:14 IV 50 mcg/kg/min .[id number] JANEY 18.643 mls/hr Administration Protocol 15 MCG/KG/MIN Azithromycin 500 mg/ Sodium 250 mls @ 250 mls/hr 10/06/24 21:00 10/06/24 20:00 Chloride IVPB 10/08/24 09:59 250 mls/hr DAILY [facility] Administration Protocol Ceftriaxone Sodium 1 gm/ 50 mls @ 100 mls/hr 10/06/24 09:00 10/06/24 09:38 Sodium Chloride IVPB 100 mls/hr Q24HR JANE[facility] Administration Protocol Methylprednisolone Sodium Succinate 60 mg 10/06/24 00:00 10/07/24 06:14 Methylprednisolone Sod Succi 125 Mg/2 Ml Vial IV 60 mg Q6HR JANE[facility] Administration Miscellaneous Information 1 each 10/07/24 06:04 Potassium Replacement Protocol 1 Each Misc MISCELLANE DAILY PRN Per Protocol Protocol Naloxone HCl 0.2 mg 10/05/24 19:45 Naloxone 0.4 Mg/Ml 1 Ml Vial IVP Q2M PRN Opioid Reversal Pantoprazole Sodium 40 mg 10/07/24 09:00 Pantoprazole 40 Mg/10 Ml Vial IVP DAILY [facility] Intake and Output 10/06/24 10/07/24 10/07/24 22:59 06:59 14:59 Intake Total 477.589 288.826 13 Output Total 260 340 30 Balance 217.589 -51.174 -17 Intake: IV 339 104 13 0.9 80 80 10 Azithromycin 500 mg In 250 Sodium Chloride 0.9% 250 ml @ 250 mls/hr IVPB DAILY [facility] Rx#:[id number] Pressure Bag 9 24 3 Intake, IV Titration 138.589 184.826 Amount propofoL 1,000 mg In 138.589 184.826 Empty Bag 1 bag @ 15 MCG/ KG/MIN 5.593 mls/hr IV . [id number] [facility] Rx#:[id number] Output: Urine 260 340 30 Other: Voiding Method Indwelling Catheter Indwelling Catheter Weight 73.4 kg 10/07/24 04:33 10/07/24 04:33
--- NOTE | 2024-10-07 08:26 | XR ---
EXAMINATION TYPE: XR chest 1V portable DATE OF EXAM: 10/07/2024 5:37 AM COMPARISON: 10/06/2024 CLINICAL INDICATION: Female, 84 years old with history of Tube placement, FINDINGS: Indwelling tubes and catheters are unchanged. Overall improved aeration. Mild patchy density right upper lobe. Stable appearance of the cardio-mediastinal structures at this time. IMPRESSION: 1. Overall improved aeration. Mild patchy density right upper lobe. [facility], , 10/07/2024 8:24 AM
[2024-10-07] MEDS: PANTOPRAZOLE 40 MG/10 ML VIAL IVP SCH (09:58)
[2024-10-07] MEDS: HEPARIN SODIUM,PORCINE 5,000 UNIT/ML 1 ML VIAL SQ SCH (09:58)
[2024-10-07] MEDS: FUROSEMIDE 10 MG/ML 4 ML VIAL IV SCH (09:58)
[2024-10-07 11:17] LABS: Glucose,Whole Blood 148 mg/dL (70-110)
--- NOTE | 2024-10-07 15:11 | P.PN ---
Subjective Progress Note Date: 10/07/24 Principal diagnosis: Acute hypoxic and acute hypercapnic respiratory failure secondary to acute exacerbation of COPD Patient is an 84-year-old female with little documented past medical history. She was living in [place] and has recently moved back to [place]. Her is recently . She has no children. She does have a niece who was contacted and provided limited information. Apparently, patient was recently hospitalized at [facility] for acute COPD and CHF exacerbation and released last week. Presents to the emergency department yesterday evening with increased work of breathing increased. Leg edema was noted. Family was concerned that the patient was confused. ABG consistent with severe hypoxemic and hypercapnic respiratory failure. She was placed on BiPAP in the ED. Chest x-ray showing enlarged cardiac silhouette with diffuse interstitial prominence. NT-proBNP was elevated at 3020. Additional labs including a CBC with a severely elevated WBC count of 56, hemoglobin 11.3 g/dL, platelets 344. CMP: Sodium 137, potassium 5, chloride 91, serum bicarb 35, BUN 26, creatinine 0.73, glucose 214. Lactic was 4.2 and is down to 2. LFTs mildly elevated. Troponin 0.08. Viral 4 Plex negative for influenza A/B, RSV, COVID. Patient currently being evaluated in the emergency department trauma bay 3. She is difficult to arouse, only grimaces to painful stimuli. I asked for repeat blood gas which does not show any significant improvement in her acid-base balance, PO2 was 84, pCO2 greater than 98, pH of 7.01. She is on BiPAP with settings 14/7 and FiO2 of 60%. Tidal volumes are low around 150 cc. I did call the patient's listed next of kin, who is a niece, and they previously discussed that the patient is a full code and okay with intubation. Patient was seen today on 10/07/2024, remains in the ICU, intubated and mechanically ventilated, patient is on assist-control rate of 18 and I cut it down to 14 tidal volume 400 FiO2 40% PEEP of 5 ABG showed a pO2 of 82 pCO2 56 pH of 7.46. Patient is on propofol at 50 mcg/kg/min she is also on IV fluid at 0.9 normal saline 10 cc/h. Receiving Lasix 40 mg every 12 hours, chest x-ray showed significant improvement in her interstitial edema, minimal hazy opacity noted in the right upper lobe, doubt clinical significance. Patient remains in atrial fibrillation but with a relatively controlled rate, chest x-ray showed again mostly COPD findings today. Patient continues to have leukocytosis with WBC count of 29.46 hemoglobin is 9 electrolytes are normal bicarb is elevated at 57 which implies that the patient is chronically metabolically compensating for severe hypercapnia. BNP level is mildly elevated at 2420, improved compared to BNP on admission 10/05/2024 was over 3000. Patient remains sedated, not agitated, and I plan to give the patient a trial sedation interruption and assessment of mental status today, however I do not believe the patient is ready to be weaned and extubated. Objective - Vital Signs Vital signs: Vital Signs Temp 98.2 F 10/07/24 13:00 Pulse 72 10/07/24 14:00 Resp 15 10/07/24 14:00 BP 127/74 10/07/24 14:00 Pulse Ox 99 10/07/24 14:00 FiO2 40 10/07/24 12:38 Intake & Output 10/06/24 10/07/24 10/07/24 18:59 06:59 18:59 Intake Total 279.599 626.415 444.419 Output Total 535 465 830 Balance -255.401 161.415 -385.581 Weight 62.142 kg 73.4 kg 73.4 kg Intake: IV 110 403 354 0.9 110 120 80 Azithromycin 500 mg In 250 250 Sodium Chloride 0.9% 250 ml @ 250 mls/hr IVPB DAILY [facility] Rx#:[id number] Pressure Bag 33 24 Intake, IV Titration 169.599 223.415 90.419 Amount propofoL 1,000 mg In 169.599 223.415 90.419 Empty Bag 1 bag @ 15 MCG/ KG/MIN 5.593 mls/hr IV . [id number] [facility] Rx#:[id number] Output: Urine 535 465 830 Other: Voiding Method Indwelling Catheter Indwelling Catheter Indwelling Catheter ABP, PAP, CO, CI - Last Documented Arterial Blood Pressure 136/57 - Exam GENERAL EXAM: 84-year-old female intubated mechanically ventilated sedated on propofol. HEAD: Normocephalic and atraumatic EYES: Normal reaction of pupils, equal size. NOSE: Clear with pink turbinates. THROAT: No erythema or exudates. NECK: No masses, no JVD. CHEST: No chest wall deformity. LUNGS: Diminished breath sound bilaterally no crackles rhonchi or wheezes CVS: S1 and S2 normal with no audible murmur, regular rhythm. No extra heart sounds ABDOMEN: No hepatosplenomegaly, active bowel sounds, no guarding or rigidity. SKIN: No rashes CENTRAL NERVOUS SYSTEM: Could not assess, patient is fully sedated EXTREMITIES: There is no peripheral edema, clubbing, or cyanosis. Peripheral pulses are intact. - Labs CBC & Chem 7: 10/07/24 04:33 10/07/24 04:33 Labs: Abnormal Lab Results - Last 24 Hours (Table) 10/06/24 10/07/24 10/07/24 Range/Units 17:52 04:33 04:33 WBC 29.46 H (4.50-10.00) 10*3/uL RBC 3.50 L (4.10-5.20) 10*6/uL Hgb 9.0 L D (12.0-15.0) g/dL Hct 29.9 L (37.2-46.3) % MCH 25.7 L (27.0-32.0) pg MCHC 30.1 L (32.0-37.0) g/dL Immature Gran # 0.33 H (0.00-0.04) 10*3/uL Neutrophils # 28.19 H (1.80-7.70) 10*3/uL Lymphocytes # 0.39 L (0.90-5.00) 10*3/uL Eosinophils # 0.00 L (0.04-0.35) 10*3/uL ABG pH (7.35-7.45) ABG pCO2 (35-45) mmHg ABG pO2 (83-108) mmHg ABG HCO3 (21-25) mmol/L ABG Total CO2 (19-24) mmol/L Hemoglobin (11.4-16.0) gm/dL Sodium 135 L (137-145) mmol/L Chloride 91 L (98-107) mmol/L Carbon Dioxide 37 H (22-30) mmol/L BUN 43 H (7-17) mg/dL Creatinine 1.11 H (0.52-1.04) mg/dL Glucose 135 H (74-99) mg/dL POC Glucose (mg/dL) 159 H (70-110) mg/dL 10/07/24 10/07/24 Range/Units 06:00 11:15 WBC (4.50-10.00) 10*3/uL RBC (4.10-5.20) 10*6/uL Hgb (12.0-15.0) g/dL Hct (37.2-46.3) % MCH (27.0-32.0) pg MCHC (32.0-37.0) g/dL Immature Gran # (0.00-0.04) 10*3/uL Neutrophils # (1.80-7.70) 10*3/uL Lymphocytes # (0.90-5.00) 10*3/uL Eosinophils # (0.04-0.35) 10*3/uL ABG pH 7.46 H (7.35-7.45) ABG pCO2 56 H (35-45) mmHg ABG pO2 82 L (83-108) mmHg ABG HCO3 40 H* (21-25) mmol/L ABG Total CO2 42 H (19-24) mmol/L Hemoglobin 8.8 L (11.4-16.0) gm/dL Sodium (137-145) mmol/L Chloride (98-107) mmol/L Carbon Dioxide (22-30) mmol/L BUN (7-17) mg/dL Creatinine (0.52-1.04) mg/dL Glucose (74-99) mg/dL POC Glucose (mg/dL) 148 H (70-110) mg/dL Microbiology - Last 24 Hours (Table) 10/05/24 23:13 Blood Culture - Preliminary Blood Assessment and Plan Assessment: Impression: Acute hypoxic and acute on chronic hypercapnic respiratory failure, patient fail ed BiPAP, required intubation mechanical ventilation, I believe the patient has severe underlying COPD, she is relatively new to our system and our practice. Possible mild diastolic congestive heart failure, resolved based on chest x-ray today. Severe leukocytosis, secondary to acute exacerbation of COPD and tracheobronchitis, doubt pneumonia specially with significant improvement noted on chest x-ray today. Nonetheless patient will need to be empirically on antibiotics considering the leukocytosis. Acute sepsis secondary to acute tracheobronchitis, doubt pneumonia. Elevated troponins, likely related supply/demand mismatch History of hypertension Recommendation: Continue ventilatory support, minimal adjustment made on ventilator settings today, she is now on assist-control rate of 24 tidal volume down to 350 FiO2 remains 40% and flow rate decreased to 55 L/min PEEP remains at 5. Continue bronchodilators and methylprednisolone. 60 mg IV push every 6 hours, continue with genocide and Perforomist Gentle diuresis chest x-ray showed significant improvement compared to admission chest x-ray Continue nutritional support/enteral feeding Continue propofol/sedation Continue empiric antibiotics, patient is empirically on Zithromax and ceftriaxone. Transthoracic echocardiogram is pending Continue GI DVT prophylaxis Patient remains critically ill Critical care time is 34 minutes Time with Patient: Greater than 30
--- NOTE | 2024-10-07 15:36 | CDI ---
Documentation Clarification Form Date: 10/07/2024 03:01:26 PM From: Alma Rosa Lemos RN CCDS Phone: [phone] Admit Date: 10/05/2024 07:46:00 PM Patient Name: Yaquelin Morton Visit Number: [id number] Discharge Date: ATTENTION: The Clinical Documentation Specialists (CDI) and [facility] Coding Staff appreciate your assistance in clarifying documentation. Please respond to the clarification below the line at the bottom and electronically sign. The CDI & [facility] Coding staff will review the response and follow-up if needed. Please note: Queries are made part of the Legal Health Record. If you have any questions, please contact the author of this message via ITS. Doctor: Yuni Malhotra The patient has Wbc 56.04, HR 94, RR 10 . Based on this information and the findings below, is there an additional diagnosis that is clinically appropriate for this patient? History/Risk Factors: 84 year old female presents to the ED with change in mental status and shortness of breath. Recently admitted with COPD and CHF. Medical History COPD and CHF. 10/06 HP. Clinical Indicators: WBC,10/05: 56.04 Lactic acid, 10/05: 4.2 Blood cultures: Drawn 10/05, verified 10/07 no growth after 24 hours Vitals signs: 10/05 B/P 118/60, HR 94, RR 10, SpO2 46% 2L nc Blood gas, 10/05: Left Brachial pH 7.04, pCO2 >98, pO2 98(+) Wilmar Test yes (+) FiO2 60(+) Hgb 11.0 (+) CXR, 7.1: Cardiomegaly and diffuse interstitial prominene. Treatment: 10/05 Duoenb Inhalation x1; 10/05 Duoenb Inhalation QID JANEY and PRN, 10/05 Solumedrol 125mg IV x1, 10/06 Solu-Medrol IV Q6H, 10/06 Diprivan IV x 1, 10/05 Propofol IV, 10/06 Pulmicort Inhalation bid, 10/06 Preformist Inhalation bid Antibiotics: 10/05 Azithromycin IVPB x 1, 10/06 Azithromycin IVPB x 3 bags, Fluids: 0.9ns IV Bolus x 1 Is there an additional diagnosis that is clinically appropriate for this patient? [ ] Sepsis, present on admission [ ] Sepsis ruled out [ ] SIRS, without underlying infectious process [ ] No additional diagnosis/not clinically significant [ ] Other, please specify [ ] Unable to determine SIRS Criteria: 2 or more of the following may indicate SIRS Temperature < 96.8F (36C) or > 101.0F (38.3C) Heart Rate > 90 bpm Respiratory Rate > 20 breaths/min or PaCO2 < 32 mmHg White Blood Cell Count > 12,000 or < 4,000 cells/mm3 or > 10% bands (Template Last Reviewed: April 2022) Unable to determine MTDD
[2024-10-07 17:18] LABS: Glucose,Whole Blood 132 mg/dL (70-110)
[2024-10-07] MEDS ORDERED: FUROSEMIDE 10 MG/ML 4 ML VIAL IV SCH (21:00)
--- NOTE | 2024-10-08 02:03 | PN ---
PROGRESS NOTE DATE OF SERVICE: 10/07/2024 SUBJECTIVE: This is an 84-year-old woman, who was admitted with shortness of breath, possibly COPD and CHF acute exacerbation, also had significant pneumonia. The patient is mechanically ventilated and intubated. The patient is much more alert today. Dr. Ford is planning some weaning parameters. PAST MEDICAL HISTORY: Reviewed. CURRENT MEDICATIONS: Reviewed. PHYSICAL EXAMINATION: VITAL SIGNS: Pulse is 75, blood pressure 113/66, respirations 20. HEENT: Conjunctivae normal. NECK: No JVD. CARDIOVASCULAR: S1, S2. RESPIRATIONS: Breath sounds diminished at the bases. Few scattered rhonchi. ABDOMEN: Soft. LEGS: No edema. NERVOUS SYSTEM: Nonfocal LABORATORY DATA: WBC 9.46. Otherwise cultures are negative so far. ASSESSMENT: 1. Shortness of breath and acute hypoxic respiratory failure, possibly secondary to chronic obstructive pulmonary disease acute exacerbation and congestive heart failure acute exacerbation with acute hypoxic respiratory failure, on mechanical ventilation. 2. Elevated WBC. 3. Possible acute tracheobronchitis and bronchopneumonia. 4. Troponin 0.080. 5. Lactic acidemia. 6. Elevated troponin, possibly supply demand mismatch. RECOMMENDATIONS: Recommend to continue current management and symptomatic treatment. Otherwise 2D echo is still pending. Continue with bronchodilators. Continue with Lasix. Continue with monitoring the pressures, steroids, empiric antibiotics. Guarded prognosis because of multiple complex medical issues. Further recommendations to follow. See orders for details. We will follow the patient closely with Cardiology and Pulmonology and further weaning parameters per Dr. Ford. MMODL / IJN: [id number] /
[2024-10-08 05:05] LABS: Glucose,Whole Blood 162 mg/dL (70-110)
[2024-10-08 05:15] LABS: Basophils # (A) 0.03 10*3/uL (0.00-0.10); Basophils % (A) 0.1 %; Eosinophils # (A) 0.00 10*3/uL (0.04-0.35); Eosinophils % (A) 0.0 %; HCT 29.8 % (37.2-46.3); HGB 9.1 g/dL (12.0-15.0); Lymphocytes # (A) 0.34 10*3/uL (0.90-5.00); Lymphocytes % (A) 1.4 %; MCH 25.9 pg (27.0-32.0); MCHC 30.5 g/dL (32.0-37.0); MCV 84.7 fL (80.0-97.0); Monocytes # (A) 0.54 10*3/uL (0.20-1.00); Monocytes % (A) 2.3 %; Neutrophils # (A) 22.57 10*3/uL (1.80-7.70); Neutrophils % (A) 95.3 %; Platelet Count 309 10*3/uL (140-440); RBC 3.52 10*6/uL (4.10-5.20); RDW 17.0 % (11.5-14.5); WBC 23.69 10*3/uL (4.50-10.00)
[2024-10-08 05:37] LABS: African American GFR (CKD) 57 (>60 ml/min/1.73 sqM); Blood Urea Nitrogen 51 mg/dL (7-17); Calcium 8.8 mg/dL (8.4-10.2); Chloride 89 mmol/L (98-107); Glucose 148 mg/dL (74-99); Magnesium 1.9 mg/dL (1.6-2.3); Non-African American GFR(CKD) 49 (>60 ml/min/1.73 sqM); Potassium 3.6 mmol/L (3.5-5.1); Sodium 137 mmol/L (137-145)
[2024-10-08 05:41] LABS: ABG PCO2 66 mmHg (35-45); ABG PH 7.43 (7.35-7.45); ABG PO2 84 mmHg (83-108); ABG TCO2 46 mmol/L (19-24)
[2024-10-08 05:44] LABS: Anion Gap 7 mmol/L
[2024-10-08 06:21] LABS: Carbon Dioxide 41 mmol/L (22-30)
[2024-10-08 06:22] LABS: ABG HCO3 44 mmol/L (21-25); Allen Test Performed? No
[2024-10-08] MEDS ORDERED: Magnesium Replacement Protocol 1 EACH MISC MISCELLANE PRN (06:47)
[2024-10-08] MEDS: POTASSIUM BICARBONATE/CIT AC 20 MEQ TABLET.EFF NG-TUBE SCH (07:02)
[2024-10-08] MEDS: MAGNESIUM SULFATE-D5W PMX 1 GM in DEXTROSE/WATER 1 100ML.BAG IVPB ONE (07:18)
--- NOTE | 2024-10-08 08:01 | XR ---
EXAMINATION TYPE: XR chest 1V portable DATE OF EXAM: 10/08/2024 5:16 AM COMPARISON: Chest radiograph from one day prior. CLINICAL INDICATION: Female, 84 years old with history of Tube placement; [facility] TECHNIQUE: XR chest 1V portable Frontal view of the chest. FINDINGS: Lungs/Pleura: No evidence of focal consolidation or pneumothorax. Blunting of the costophrenic angles is present. Pulmonary vascularity: Pulmonary vascular congestion. Heart/mediastinum: Cardiomediastinal silhouette is enlarged. Musculoskeletal: No acute osseous pathology. Other findings: None Lines/Tubes: Endotracheal tube with distal tip 2.7 cm above the fanta. Nasogastric tube with its distal tip and side-port projecting under the diaphragm. IMPRESSION: Cardiomegaly, pulmonary vascular congestion and bilateral pleural effusions. Correlate with BNP for c ongestive heart failure. [facility], , 10/08/2024 7:59 AM
[2024-10-08 10:29] LABS: ABG PCO2 65 mmHg (35-45); ABG PH 7.44 (7.35-7.45); ABG PO2 69 mmHg (83-108); ABG TCO2 46 mmol/L (19-24)
[2024-10-08 10:54] LABS: ABG HCO3 44 mmol/L (21-25); Allen Test Performed? NO
[2024-10-08 11:35] LABS: Glucose,Whole Blood 121 mg/dL (70-110)
--- NOTE | 2024-10-08 13:59 | P.PN ---
Subjective Progress Note Date: 10/08/24 The patient is an 84-year-old female patient who we consulted to see in the ICU for heart failure. She was is intubated on mechanical ventilation. The patient presented to the emergency department with progressive shortness of breath and she was found to be hypoxic and hypercapnic. She did not respond to BiPAP. Subsequently she was intubated and placed on mechanical ventilation. She is known to have COPD and CHF of unknown etiology. Echocardiogram was performed and still pending. No indication that the patient was experiencing any symptoms of chest pain or chest discomfort. She was noted to have bilateral lower extremities pitting edema. The chest x-ray showed finding consistent with COPD with small bilateral pleural effusion. The patient was placed on Lasix IV and also she was placed on antibiotic and she is getting treated for COPD/pneumonia. No previous medical records in EMR at this point. The echo was performed last night we will follow-up on that. Blood work showed anemia with a hemoglobin around 9. NT-proBNP 2420. Sodium and potassium are within normal limits. GFR is at 54. The physical examination is remarkable for regular rhythm with a systolic murmur at the right upper sternal border and bilateral rhonchi and also bilateral lower extremities pitting edema was noted. Since the patient was placed on Lasix she has been responding well. 10/08/24 She was extubated this am. Breathing is feeling ok. No chest pain or pressure. No edema. WBC 23, Hgb 9.1, creat 1.06, K+ 3.6. ECHO showed EF 55-60%, severe bi- atrial enlaragement, mild TR. She has recently relocated from [place]. 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 Pt is a poor historian. PHYSICAL EXAMINATION: This is a 84 year-old female in no apparent distress at the time of my examination. HEENT: Head is atraumatic, normocephalic. Pupils are equal, round. Sclerae anicteric. Conjunctivae are clear. Mucous membranes of the mouth are moist. Neck is supple. There is no jugular venous distention. No carotid bruit is heard. CHEST EXAMINATION: Lungs are diminished with rhonchi. No chest wall tenderness is noted on palpation or with deep breathing. HEART EXAMINATION: Heart regular rate and rhythm. S1, S2 heard. No murmurs, gallops or rub. ABDOMEN: Soft, nontender. Bowel sounds are heard. EXTREMITIES: 2+ peripheral pulses with no evidence of peripheral edema and no calf tenderness noted. NEUROLOGIC EXAMINATION: Patient is awake, alert and oriented x3. Assessment Acute hypoxic and hypercapnic respiratory failure secondary to a combination of COPD and CHF CHF exacerbation, diastolic, of unknown etiology COPD Hypertension Multiple comorbid conditions Leukocytosis Plan ECHO showed EF 55-60% Check procalcitronin Continue monitor the kidney function and electrolytes Continue Lasix Continue the treatment for COPD and possible underlying pneumonia OK to downgrade from cardiac standpoint Further recommendation pending clinical course I am dictating on behalf of Dr. Adonis Sanon's history/physical and assessment/plan. Objective - Vital Signs Vital signs: Vital Signs Temp 97.9 F 10/08/24 08:00 Pulse 84 10/08/24 12:25 Resp 15 10/08/24 08:00 BP 135/66 10/08/24 08:00 Pulse Ox 100 10/08/24 08:00 FiO2 35 10/08/24 11:01 Intake & Output 10/07/24 10/08/24 10/08/24 18:59 06:59 18:59 Intake Total 578.759 701 201.854 Output Total 1180 710 515 Balance -601.241 -9 -313.146 Weight 73.4 kg 73 kg Intake: IV 406 156 26 0.9 120 120 20 Azithromycin 500 mg In 250 Sodium Chloride 0.9% 250 ml @ 250 mls/hr IVPB DAILY JANEY Rx#:[id number] Pressure Bag 36 36 6 Intake, IV Titration 172.759 200 79.854 Amount propofoL 1,000 mg In 172.759 200 79.854 Empty Bag 1 bag @ 15 MCG/ KG/MIN 5.593 mls/hr IV . [id number] JANEY Rx#:[id number] Tube Feeding 285 66 Other 60 30 Output: Urine 1180 710 515 Other: Voiding Method Indwelling Catheter Indwelling Catheter Indwelling Catheter ABP, PAP, CO, CI - Last Documented Arterial Blood Pressure 126/51 - Labs CBC & Chem 7: 10/08/24 05:06 10/08/24 05:06 Labs: Abnormal Lab Results - Last 24 Hours (Table) 10/07/24 10/08/24 10/08/24 Range/Units 17:17 05:03 05:06 WBC 23.69 H (4.50-10.00) 10*3/uL RBC 3.52 L (4.10-5.20) 10*6/uL Hgb 9.1 L (12.0-15.0) g/dL Hct 29.8 L (37.2-46.3) % MCH 25.9 L (27.0-32.0) pg MCHC 30.5 L (32.0-37.0) g/dL Immature Gran # 0.21 H (0.00-0.04) 10*3/uL Neutrophils # 22.57 H (1.80-7.70) 10*3/uL Lymphocytes # 0.34 L (0.90-5.00) 10*3/uL Eosinophils # 0.00 L (0.04-0.35) 10*3/uL ABG pCO2 (35-45) mmHg ABG pO2 (83-108) mmHg ABG HCO3 (21-25) mmol/L ABG Total CO2 (19-24) mmol/L ABG O2 Saturation (94-97) % Hemoglobin (11.4-16.0) gm/dL Chloride (98-107) mmol/L Carbon Dioxide (22-30) mmol/L BUN (7-17) mg/dL Creatinine (0.52-1.04) mg/dL Glucose (74-99) mg/dL POC Glucose (mg/dL) 132 H 162 H (70-110) mg/dL 10/08/24 10/08/24 10/08/24 Range/Units 05:06 05:41 10:25 WBC (4.50-10.00) 10*3/uL RBC (4.10-5.20) 10*6/uL Hgb (12.0-15.0) g/dL Hct (37.2-46.3) % MCH (27.0-32.0) pg MCHC (32.0-37.0) g/dL Immature Gran # (0.00-0.04) 10*3/uL Neutrophils # (1.80-7.70) 10*3/uL Lymphocytes # (0.90-5.00) 10*3/uL Eosinophils # (0.04-0.35) 10*3/uL ABG pCO2 66 H 65 H (35-45) mmHg ABG pO2 69 L (83-108) mmHg ABG HCO3 44 H* 44 H* (21-25) mmol/L ABG Total CO2 46 H 46 H (19-24) mmol/L ABG O2 Saturation 93.7 L (94-97) % Hemoglobin 9.2 L 9.9 L (11.4-16.0) gm/dL Chloride 89 L (98-107) mmol/L Carbon Dioxide 41 H* (22-30) mmol/L BUN 51 H (7-17) mg/dL Creatinine 1.06 H (0.52-1.04) mg/dL Glucose 148 H (74-99) mg/dL POC Glucose (mg/dL) (70-110) mg/dL 10/08/24 Range/Units 11:34 WBC (4.50-10.00) 10*3/uL RBC (4.10-5.20) 10*6/uL Hgb (12.0-15.0) g/dL Hct (37.2-46.3) % MCH (27.0-32.0) pg MCHC (32.0-37.0) g/dL Immature Gran # (0.00-0.04) 10*3/uL Neutrophils # (1.80-7.70) 10*3/uL Lymphocytes # (0.90-5.00) 10*3/uL Eosinophils # (0.04-0.35) 10*3/uL ABG pCO2 (35-45) mmHg ABG pO2 (83-108) mmHg ABG HCO3 (21-25) mmol/L ABG Total CO2 (19-24) mmol/L ABG O2 Saturation (94-97) % Hemoglobin (11.4-16.0) gm/dL Chloride (98-107) mmol/L Carbon Dioxide (22-30) mmol/L BUN (7-17) mg/dL Creatinine (0.52-1.04) mg/dL Glucose (74-99) mg/dL POC Glucose (mg/dL) 121 H (70-110) mg/dL Microbiology - Last 24 Hours (Table) 10/05/24 23:13 Blood Culture - Preliminary Blood
--- NOTE | 2024-10-08 14:13 | P.PN ---
Subjective Progress Note Date: 10/08/24 Principal diagnosis: Acute hypoxic and acute hypercapnic respiratory failure secondary to acute exacerbation of COPD Patient is an 84-year-old female with little documented past medical history. She was living in [place] and has recently moved back to [place]. Her is recently . She has no children. She does have a niece who was contacted and provided limited information. Apparently, patient was recently hospitalized at [facility] for acute COPD and CHF exacerbation and released last week. Presents to the emergency department yesterday evening with increased work of breathing increased. Leg edema was noted. Family was concerned that the patient was confused. ABG consistent with severe hypoxemic and hypercapnic respiratory failure. She was placed on BiPAP in the ED. Chest x-ray showing enlarged cardiac silhouette with diffuse interstitial prominence. NT-proBNP was elevated at 3020. Additional labs including a CBC with a severely elevated WBC count of 56, hemoglobin 11.3 g/dL, platelets 344. CMP: Sodium 137, potassium 5, chloride 91, serum bicarb 35, BUN 26, creatinine 0.73, glucose 214. Lactic was 4.2 and is down to 2. LFTs mildly elevated. Troponin 0.08. Viral 4 Plex negative for influenza A/B, RSV, COVID. Patient currently being evaluated in the emergency department trauma bay 3. She is difficult to arouse, only grimaces to painful stimuli. I asked for repeat blood gas which does not show any significant improvement in her acid-base balance, PO2 was 84, pCO2 greater than 98, pH of 7.01. She is on BiPAP with settings 14/7 and FiO2 of 60%. Tidal volumes are low around 150 cc. I did call the patient's listed next of kin, who is a niece, and they previously discussed that the patient is a full code and okay with intubation. Patient was seen today on 10/07/2024, remains in the ICU, intubated and mechanically ventilated, patient is on assist-control rate of 18 and I cut it down to 14 tidal volume 400 FiO2 40% PEEP of 5 ABG showed a pO2 of 82 pCO2 56 pH of 7.46. Patient is on propofol at 50 mcg/kg/min she is also on IV fluid at 0.9 normal saline 10 cc/h. Receiving Lasix 40 mg every 12 hours, chest x-ray showed significant improvement in her interstitial edema, minimal hazy opacity noted in the right upper lobe, doubt clinical significance. Patient remains in atrial fibrillation but with a relatively controlled rate, chest x-ray showed again mostly COPD findings today. Patient continues to have leukocytosis with WBC count of 29.46 hemoglobin is 9 electrolytes are normal bicarb is elevated at 57 which implies that the patient is chronically metabolically compensating for severe hypercapnia. BNP level is mildly elevated at 2420, improved compared to BNP on admission 10/05/2024 was over 3000. Patient remains sedated, not agitated, and I plan to give the patient a trial sedation interruption and assessment of mental status today, however I do not believe the patient is ready to be weaned and extubated. Patient was seen today on 10/08/24, remains in the ICU, intubated and mechanically ventilated, patient is on assist-control rate of 14 tidal volume 400 FiO2 40% anticolic down to 35% PEEP of 5 ABG showed a PO2 of 84 pCO2 66 pH of 7.43. Patient remains on propofol at 50 mcg/kg/min however we recommended holding the propofol this morning and holding vital HP. Patient is on maximal bronchodilators and steroids, she is also on empiric antibiotics utilizing Rocephin and Zithromax, she is on Lasix 40 mg IV push twice daily. While I was rounding, patient was noted to to be awake, and she was following all simple instructions, did not seem to be in distress, hence I transitioned her mode of mechanical ventilation to pressure support of 10 and CPAP. Recommended repeat ABG and weaning parameters in half hour, and if they seem to be reasonable, could consider the patient for extubation from mechanical ventilation. WBC count is 23.6 hemoglobin 9.1. Electrolytes are normal bicarb is 41 which is expected considering her severe COPD and chronic hypercapnia BUN is 51 creatinine 1.06. Chest x-ray showed cardiomegaly, minimal pleural effusions, consistent with mild congestive heart failure. BNP on admission was over 3000 patient was seen by cardiology on 10/07/2024. Objective - Vital Signs Vital signs: Vital Signs Temp 97.9 F 10/08/24 08:00 Pulse 84 10/08/24 12:25 Resp 15 10/08/24 08:00 BP 135/66 10/08/24 08:00 Pulse Ox 100 10/08/24 08:00 FiO2 35 10/08/24 11:01 Intake & Output 10/07/24 10/08/24 10/08/24 18:59 06:59 18:59 Intake Total 578.759 701 201.854 Output Total 1180 710 515 Balance -601.241 -9 -313.146 Weight 73.4 kg 73 kg Intake: IV 406 156 26 0.9 120 120 20 Azithromycin 500 mg In 250 Sodium Chloride 0.9% 250 ml @ 250 mls/hr IVPB DAILY JANEY Rx#:[id number] Pressure Bag 36 36 6 Intake, IV Titration 172.759 200 79.854 Amount propofoL 1,000 mg In 172.759 200 79.854 Empty Bag 1 bag @ 15 MCG/ KG/MIN 5.593 mls/hr IV . [id number] JANEY Rx#:[id number] Tube Feeding 285 66 Other 60 30 Output: Urine 1180 710 515 Other: Voiding Method Indwelling Catheter Indwelling Catheter Indwelling Catheter ABP, PAP, CO, CI - Last Documented Arterial Blood Pressure 126/51 - Exam GENERAL EXAM: 84-year-old female intubated mechanically noted to be quite appropriate off propofol this morning HEAD: Normocephalic and atraumatic EYES: Normal reaction of pupils, equal size. NOSE: Clear with pink turbinates. THROAT: No erythema or exudates. NECK: No masses, no JVD. CHEST: No chest wall deformity. LUNGS: Diminished breath sound bilaterally no crackles rhonchi or wheezes CVS: S1 and S2 normal with no audible murmur, regular rhythm. No extra heart sounds ABDOMEN: No hepatosplenomegaly, active bowel sounds, no guarding or rigidity. SKIN: No rashes CENTRAL NERVOUS SYSTEM: Awake, intubated, off propofol, follows all simple instructions. EXTREMITIES: There is no peripheral edema, clubbing, or cyanosis. Peripheral pulses are intact. - Labs CBC & Chem 7: 10/08/24 05:06 10/08/24 05:06 Labs: Abnormal Lab Results - Last 24 Hours (Table) 10/07/24 10/08/24 10/08/24 Range/Units 17:17 05:03 05:06 WBC 23.69 H (4.50-10.00) 10*3/uL RBC 3.52 L (4.10-5.20) 10*6/uL Hgb 9.1 L (12.0-15.0) g/dL Hct 29.8 L (37.2-46.3) % MCH 25.9 L (27.0-32.0) pg MCHC 30.5 L (32.0-37.0) g/dL Immature Gran # 0.21 H (0.00-0.04) 10*3/uL Neutrophils # 22.57 H (1.80-7.70) 10*3/uL Lymphocytes # 0.34 L (0.90-5.00) 10*3/uL Eosinophils # 0.00 L (0.04-0.35) 10*3/uL ABG pCO2 (35-45) mmHg ABG pO2 (83-108) mmHg ABG HCO3 (21-25) mmol/L ABG Total CO2 (19-24) mmol/L ABG O2 Saturation (94-97) % Hemoglobin (11.4-16.0) gm/dL Chloride (98-107) mmol/L Carbon Dioxide (22-30) mmol/L BUN (7-17) mg/dL Creatinine (0.52-1.04) mg/dL Glucose (74-99) mg/dL POC Glucose (mg/dL) 132 H 162 H (70-110) mg/dL 10/08/24 10/08/24 10/08/24 Range/Units 05:06 05:41 10:25 WBC (4.50-10.00) 10*3/uL RBC (4.10-5.20) 10*6/uL Hgb (12.0-15.0) g/dL Hct (37.2-46.3) % MCH (27.0-32.0) pg MCHC (32.0-37.0) g/dL Immature Gran # (0.00-0.04) 10*3/uL Neutrophils # (1.80-7.70) 10*3/uL Lymphocytes # (0.90-5.00) 10*3/uL Eosinophils # (0.04-0.35) 10*3/uL ABG pCO2 66 H 65 H (35-45) mmHg ABG pO2 69 L (83-108) mmHg ABG HCO3 44 H* 44 H* (21-25) mmol/L ABG Total CO2 46 H 46 H (19-24) mmol/L ABG O2 Saturation 93.7 L (94-97) % Hemoglobin 9.2 L 9.9 L (11.4-16.0) gm/dL Chloride 89 L (98-107) mmol/L Carbon Dioxide 41 H* (22-30) mmol/L BUN 51 H (7-17) mg/dL Creatinine 1.06 H (0.52-1.04) mg/dL Glucose 148 H (74-99) mg/dL POC Glucose (mg/dL) (70-110) mg/dL 10/08/24 Range/Units 11:34 WBC (4.50-10.00) 10*3/uL RBC (4.10-5.20) 10*6/uL Hgb (12.0-15.0) g/dL Hct (37.2-46.3) % MCH (27.0-32.0) pg MCHC (32.0-37.0) g/dL Immature Gran # (0.00-0.04) 10*3/uL Neutrophils # (1.80-7.70) 10*3/uL Lymphocytes # (0.90-5.00) 10*3/uL Eosinophils # (0.04-0.35) 10*3/uL ABG pCO2 (35-45) mmHg ABG pO2 (83-108) mmHg ABG HCO3 (21-25) mmol/L ABG Total CO2 (19-24) mmol/L ABG O2 Saturation (94-97) % Hemoglobin (11.4-16.0) gm/dL Chloride (98-107) mmol/L Carbon Dioxide (22-30) mmol/L BUN (7-17) mg/dL Creatinine (0.52-1.04) mg/dL Glucose (74-99) mg/dL POC Glucose (mg/dL) 121 H (70-110) mg/dL Microbiology - Last 24 Hours (Table) 10/05/24 23:13 Blood Culture - Preliminary Blood Assessment and Plan Assessment: Impression: Acute hypoxic and acute on chronic hypercapnic respiratory failure, patient failed BiPAP, required intubation mechanical ventilation Possible mild diastolic congestive heart failure, with mild congestive heart failure and elevated BNP level echocardiogram is pending Severe leukocytosis, secondary to acute exacerbation of COPD and tracheobronchitis, doubt pneumonia specially with significant improvement noted on chest x-ray today. Acute sepsis secondary to acute tracheobronchitis, doubt pneumonia. Although pneumonia is not entirely ruled out. Elevated troponins, likely related supply/demand mismatch History of hypertension Recommendation: Continue mechanical ventilation however a trial of pressure support and CPAP will be given to the patient today. Continue bronchodilators and methylprednisolone. 60 mg IV push every 6 hours, continue with budesonide and Perforomist Continue Lasix Continue nutritional support/enteral feeding Hold propofol Continue empiric antibiotics Transthoracic echocardiogram is pending Continue GI DVT prophylaxis Patient remains critically ill, and prognosis remains guarded for now considering the severity of her COPD Critical care time is 33 minutes Time with Patient: Greater than 30
--- NOTE | 2024-10-08 16:41 | PN ---
PROGRESS NOTE DATE OF SERVICE: 10/08/2024 SUBJECTIVE: This is an 84-year-old woman, originally from [place], moved back to [place] recently. The patient is admitted with acute respiratory failure, possibly combination of COPD and CHF exacerbation. The level of compliance is unknown at this time. The patient is extubated. The patient had possibly some pneumonia. The patient closely monitored. PAST MEDICAL HISTORY: Reviewed. CURRENT MEDICATIONS: Reviewed. PHYSICAL EXAMINATION: VITAL SIGNS: Pulse is 76, blood pressure is 135/60, respirations 15. HEENT: Conjunctivae normal. CARDIOVASCULAR: S1, S2. RESPIRATIONS: Scattered rhonchi. ABDOMEN: Soft. NERVOUS SYSTEM: Diffusely weak. LABORATORY DATA: WBC elevated 23.69. ASSESSMENT: 1. Shortness of breath as well as acute hypoxic respiratory mechanical condition, possibly secondary to chronic obstructive pulmonary disease exacerbation as well as congestive heart failure acute exacerbation. 2. Possible pneumonia versus acute purulent tracheobronchitis. 3. Elevated WBC. 4. Troponin 0.087. 5. Lactic acidemia. 6. Elevated troponin, possibly supply demand mismatch per Cardiology. RECOMMENDATIONS: Recommend to continue current management and continue with bronchodilators. Continue with empiric antibiotics. Continue with rest of the medications. The cultures are negative so far. Repeat labs. Closely follow with Cardiology, Pulmonology. Prognosis guarded. Further recommendations to follow. MMODL / IJN: [id number] /
[2024-10-08 17:32] LABS: Glucose,Whole Blood 197 mg/dL (70-110)
[2024-10-09 03:11] LABS: Basophils # (A) 0.06 10*3/uL (0.00-0.10); Basophils % (A) 0.2 %; Eosinophils # (A) 0.00 10*3/uL (0.04-0.35); Eosinophils % (A) 0.0 %; HCT 32.3 % (37.2-46.3); HGB 9.6 g/dL (12.0-15.0); Lymphocytes # (A) 0.45 10*3/uL (0.90-5.00); Lymphocytes % (A) 1.6 %; MCH 26.0 pg (27.0-32.0); MCHC 29.7 g/dL (32.0-37.0); MCV 87.5 fL (80.0-97.0); Monocytes # (A) 1.33 10*3/uL (0.20-1.00); Monocytes % (A) 4.8 %; Neutrophils # (A) 25.19 10*3/uL (1.80-7.70); Neutrophils % (A) 91.0 %; Platelet Count 346 10*3/uL (140-440); RBC 3.69 10*6/uL (4.10-5.20); RDW 17.3 % (11.5-14.5); WBC 27.70 10*3/uL (4.50-10.00)
[2024-10-09 03:34] LABS: African American GFR (CKD) 47 (>60 ml/min/1.73 sqM); Blood Urea Nitrogen 56 mg/dL (7-17); Calcium 8.7 mg/dL (8.4-10.2); Chloride 87 mmol/L (98-107); Glucose 132 mg/dL (74-99); Magnesium 1.9 mg/dL (1.6-2.3); Non-African American GFR(CKD) 41 (>60 ml/min/1.73 sqM); Potassium 3.8 mmol/L (3.5-5.1); Sodium 139 mmol/L (137-145)
[2024-10-09 03:40] LABS: Anion Gap 6 mmol/L
[2024-10-09 03:41] LABS: Carbon Dioxide 46 mmol/L (22-30)
[2024-10-09] MEDS: MAGNESIUM SULFATE-D5W PMX 1 GM in DEXTROSE/WATER 1 100ML.BAG IVPB ONE (05:12)
[2024-10-09] MEDS: POTASSIUM CHLORIDE ER 20 MEQ TAB.ER PO SCH (05:12)
--- NOTE | 2024-10-09 07:26 | XR ---
EXAMINATION TYPE: XR chest 1V portable DATE OF EXAM: 10/09/2024 5:16 AM COMPARISON: Chest radiograph from one day prior. CLINICAL INDICATION: Female, 84 years old with history of copd, chf exac.; [facility] TECHNIQUE: XR chest 1V portable Frontal view of the chest. FINDINGS: Lungs/Pleura: Improved aeration of the lungs No evidence of focal consolidation or pneumothorax. Blun ting of the costophrenic angles is present. Pulmonary vascularity: Pulmonary vascular congestion. Heart/mediastinum: Cardiomediastinal silhouette is enlarged. Musculoskeletal: No acute osseous pathology. Other findings: None Lines/Tubes: Interval removal of the endotracheal tube. Interval removal of the enteric tube, IMPRESSION: Improved aeration of the lungs. [facility], , 10/09/2024 7:23 AM
--- NOTE | 2024-10-09 11:12 | P.PN ---
Subjective Progress Note Date: 10/09/24 Principal diagnosis: Acute hypoxic and acute hypercapnic respiratory failure secondary to acute exacerbation of COPD Patient is an 84-year-old female with little documented past medical history. She was living in [place] and has recently moved back to [place]. Her is recently . She has no children. She does have a niece who was contacted and provided limited information. Apparently, patient was recently hospitalized at [facility] for acute COPD and CHF exacerbation and released last week. Presents to the emergency department yesterday evening with increased work of breathing increased. Leg edema was noted. Family was concerned that the patient was confused. ABG consistent with severe hypoxemic and hypercapnic respiratory failure. She was placed on BiPAP in the ED. Chest x-ray showing enlarged cardiac silhouette with diffuse interstitial prominence. NT-proBNP was elevated at 3020. Additional labs including a CBC with a severely elevated WBC count of 56, hemoglobin 11.3 g/dL, platelets 344. CMP: Sodium 137, potassium 5, chloride 91, serum bicarb 35, BUN 26, creatinine 0.73, glucose 214. Lactic was 4.2 and is down to 2. LFTs mildly elevated. Troponin 0.08. Viral 4 Plex negative for influenza A/B, RSV, COVID. Patient currently being evaluated in the emergency department trauma bay 3. She is difficult to arouse, only grimaces to painful stimuli. I asked for repeat blood gas which does not show any significant improvement in her acid-base balance, PO2 was 84, pCO2 greater than 98, pH of 7.01. She is on BiPAP with settings 14/7 and FiO2 of 60%. Tidal volumes are low around 150 cc. I did call the patient's listed next of kin, who is a niece, and they previously discussed that the patient is a full code and okay with intubation. Patient was seen today on 10/07/2024, remains in the ICU, intubated and mechanically ventilated, patient is on assist-control rate of 18 and I cut it down to 14 tidal volume 400 FiO2 40% PEEP of 5 ABG showed a pO2 of 82 pCO2 56 pH of 7.46. Patient is on propofol at 50 mcg/kg/min she is also on IV fluid at 0.9 normal saline 10 cc/h. Receiving Lasix 40 mg every 12 hours, chest x-ray showed significant improvement in her interstitial edema, minimal hazy opacity noted in the right upper lobe, doubt clinical significance. Patient remains in atrial fibrillation but with a relatively controlled rate, chest x-ray showed again mostly COPD findings today. Patient continues to have leukocytosis with WBC count of 29.46 hemoglobin is 9 electrolytes are normal bicarb is elevated at 57 which implies that the patient is chronically metabolically compensating for severe hypercapnia. BNP level is mildly elevated at 2420, improved compared to BNP on admission 10/05/2024 was over 3000. Patient remains sedated, not agitated, and I plan to give the patient a trial sedation interruption and assessment of mental status today, however I do not believe the patient is ready to be weaned and extubated. Patient was seen today on 10/08/24, remains in the ICU, intubated and mechanically ventilated, patient is on assist-control rate of 14 tidal volume 400 FiO2 40% anticolic down to 35% PEEP of 5 ABG showed a PO2 of 84 pCO2 66 pH of 7.43. Patient remains on propofol at 50 mcg/kg/min however we recommended holding the propofol this morning and holding vital HP. Patient is on maximal bronchodilators and steroids, she is also on empiric antibiotics utilizing Rocephin and Zithromax, she is on Lasix 40 mg IV push twice daily. While I was rounding, patient was noted to to be awake, and she was following all simple instructions, did not seem to be in distress, hence I transitioned her mode of mechanical ventilation to pressure support of 10 and CPAP. Recommended repeat ABG and weaning parameters in half hour, and if they seem to be reasonable, could consider the patient for extubation from mechanical ventilation. WBC count is 23.6 hemoglobin 9.1. Electrolytes are normal bicarb is 41 which is expected considering her severe COPD and chronic hypercapnia BUN is 51 creatinine 1.06. Chest x-ray showed cardiomegaly, minimal pleural effusions, consistent with mild congestive heart failure. BNP on admission was over 3000 patient was seen by cardiology on 10/07/2024. Patient was seen today on 10/09/2024, remains in the ICU, patient was extubated yesterday, and she tolerated the extubation well. She is now on 2 L nasal cannula, she is normally on home O2 according to the patient, she is normally on multiple bronchodilators and she is normally on prednisone. We have never seen this patient before prior to this admission, apparently she has been in [place], and she moved recently to [facility]. Patient remains on multiple bronchodilators, she is on DuoNeb, she is on Solu-Medrol, she is also on Perforomist and budesonide. No cough no wheezing no shortness of breath, hence I plan to transfer the patient out of the ICU sometime later today to regular medical torres or, and I plan to monitor the patient for the next 24 hours, and if she continues to do well we will likely recommend discharge home in 24 hours. At this point she remains marginal she just got extubated yesterday, and she does have based on the history quite severe COPD. Continues to have leukocytosis with WC of 27.7 hemoglobin is 9.6, electrolytes are normal except for bicarb of 46, and this is indicative of the patient having severe hypercapnia with chronic metabolic compensation. Patient is now off diuretics as she developed worsening BUN and worsening creatinine 1.24 chest x-ray showed improvement in her interstitial edema Lasix is now presently on hold. Objective - Vital Signs Vital signs: Vital Signs Temp 98.3 F 10/09/24 08:00 Pulse 88 10/09/24 09:46 Resp 16 10/09/24 09:24 BP 127/58 10/09/24 08:00 Pulse Ox 96 10/09/24 09:24 FiO2 35 10/08/24 11:01 Intake & Output 10/08/24 10/09/24 10/09/24 18:59 06:59 18:59 Intake Total 1339.051 340 130 Output Total 2245 1145 300 Balance -905.949 -805 -170 Weight 71.1 kg Intake: IV 543 340 130 0.9 210 240 80 Azithromycin 500 mg In 250 Sodium Chloride 0.9% 250 ml @ 250 mls/hr IVPB DAILY [facility] Rx#:[id number] Magnesium Sulfate-D5w Pmx 100 1 gm In Dextrose/Water 1 100ml.bag @ 100 mls/hr IVPB ONCE ONE Rx#: [id number] Pressure Bag 33 cefTRIAXone 1 gm In 50 50 Sodium Chloride 0.9% 50 ml @ 100 mls/hr IVPB Q24HR [facility] Rx#:[id number] Intake, IV Titration 100.051 Amount propofoL 1,000 mg In 100.051 Empty Bag 1 bag @ 15 MCG/ KG/MIN 5.593 mls/hr IV . [id number] [facility] Rx#:[id number] Oral 600 Tube Feeding 66 Other 30 Output: Urine 2245 1145 300 Other: Voiding Method Indwelling Catheter Indwelling Catheter Indwelling Catheter # Bowel Movements 1 ABP, PAP, CO, CI - Last Documented Arterial Blood Pressure 150/46 - Exam GENERAL EXAM: 84-year-old female, pleasant, on 2 L nasal cannula HEAD: Normocephalic and atraumatic EYES: Normal reaction of pupils, equal size. NOSE: Clear with pink turbinates. THROAT: No erythema or exudates. NECK: No masses, no JVD. CHEST: No chest wall deformity. LUNGS: Diminished breath sound bilaterally no crackles rhonchi or wheezes CVS: S1 and S2 normal with no audible murmur, regular rhythm. No extra heart sounds ABDOMEN: No hepatosplenomegaly, active bowel sounds, no guarding or rigidity. SKIN: No rashes CENTRAL NERVOUS SYSTEM: Alert oriented x 3 no gross focal neurologic deficit EXTREMITIES: There is no peripheral edema, clubbing, or cyanosis. Peripheral pulses are intact. - Labs CBC & Chem 7: 10/09/24 02:33 10/09/24 02:33 Labs: Abnormal Lab Results - Last 24 Hours (Table) 10/08/24 10/08/24 10/09/24 Range/Units 11:34 17:31 02:33 WBC (4.50-10.00) 10*3/uL RBC (4.10-5.20) 10*6/uL Hgb (12.0-15.0) g/dL Hct (37.2-46.3) % MCH (27.0-32.0) pg MCHC (32.0-37.0) g/dL Immature Gran # (0.00-0.04) 10*3/uL Neutrophils # (1.80-7.70) 10*3/uL Lymphocytes # (0.90-5.00) 10*3/uL Monocytes # (0.20-1.00) 10*3/uL Eosinophils # (0.04-0.35) 10*3/uL Chloride 87 L (98-107) mmol/L Carbon Dioxide 46 H* (22-30) mmol/L BUN 56 H (7-17) mg/dL Creatinine 1.24 H (0.52-1.04) mg/dL Glucose 132 H (74-99) mg/dL POC Glucose (mg/dL) 121 H 197 H (70-110) mg/dL 10/09/24 Range/Units 02:33 WBC 27.70 H (4.50-10.00) 10*3/uL RBC 3.69 L (4.10-5.20) 10*6/uL Hgb 9.6 L (12.0-15.0) g/dL Hct 32.3 L (37.2-46.3) % MCH 26.0 L (27.0-32.0) pg MCHC 29.7 L (32.0-37.0) g/dL Immature Gran # 0.67 H (0.00-0.04) 10*3/uL Neutrophils # 25.19 H (1.80-7.70) 10*3/uL Lymphocytes # 0.45 L (0.90-5.00) 10*3/uL Monocytes # 1.33 H (0.20-1.00) 10*3/uL Eosinophils # 0.00 L (0.04-0.35) 10*3/uL Chloride (98-107) mmol/L Carbon Dioxide (22-30) mmol/L BUN (7-17) mg/dL Creatinine (0.52-1.04) mg/dL Glucose (74-99) mg/dL POC Glucose (mg/dL) (70-110) mg/dL Microbiology - Last 24 Hours (Table) 10/05/24 23:13 Blood Culture - Preliminary Blood Assessment and Plan Assessment: Impression: Acute hypoxic and acute on chronic hypercapnic respiratory failure, patient failed BiPAP, required intubation mechanical ventilation Possible mild diastolic congestive heart failure, with mild congestive heart failure and elevated BNP level echocardiogram is pending Severe leukocytosis, secondary to acute exacerbation of COPD and tracheobronchitis, doubt pneumonia specially with significant improvement noted on chest x-ray today. Acute sepsis secondary to acute tracheobronchitis, doubt pneumonia. Although pneumonia is not entirely ruled out. Elevated troponins, likely related supply/demand mismatch History of hypertension Acute kidney injury likely related to excessive diuresis hence Lasix will be placed on hold for now Recommendation: Continue oxygen and titrate accordingly Continue bronchodilators and change methylprednisolone to prednisone orally, continue with budesonide and Perforomist Hold Lasix Advance diet as tolerated Continue empiric antibiotics Continue GI DVT prophylaxis Transferred patient out of the ICU to medical surgical floor Will continue to follow not ready for any discharge planning at this point. Repeat renal profile in a.m., awaiting echocardiogram Time with Patient: Less than 30
[2024-10-09] MEDS: predniSONE 20 MG TAB PO SCH (12:08)
--- NOTE | 2024-10-09 14:52 | P.PN ---
Subjective Progress Note Date: 10/09/24 The patient is an 84-year-old female patient who we consulted to see in the ICU for heart failure. She was is intubated on mechanical ventilation. The patient presented to the emergency department with progressive shortness of breath and she was found to be hypoxic and hypercapnic. She did not respond to BiPAP. Subsequently she was intubated and placed on mechanical ventilation. She is known to have COPD and CHF of unknown etiology. Echocardiogram was performed and still pending. No indication that the patient was experiencing any symptoms of chest pain or chest discomfort. She was noted to have bilateral lower extremities pitting edema. The chest x-ray showed finding consistent with COPD with small bilateral pleural effusion. The patient was placed on Lasix IV and also she was placed on antibiotic and she is getting treated for COPD/pneumonia. No previous medical records in EMR at this point. The echo was performed last night we will follow-up on that. Blood work showed anemia with a hemoglobin around 9. NT-proBNP 2420. Sodium and potassium are within normal limits. GFR is at 54. The physical examination is remarkable for regular rhythm with a systolic murmur at the right upper sternal border and bilateral rhonchi and also bilateral lower extremities pitting edema was noted. Since the patient was placed on Lasix she has been responding well. 10/08/24 She was extubated this am. Breathing is feeling ok. No chest pain or pressure. No edema. WBC 23, Hgb 9.1, creat 1.06, K+ 3.6. ECHO showed EF 55-60%, severe bi- atrial enlaragement, mild TR. She has recently relocated from [place]. She is unable to recall the name of her esl tutor in [place], nephew at bedside is working to get prior medical information. Pt is a poor historian. 10/09/2024 She has been feeling well. No chest pain. Dyspnea is stable. Creat 1.2. PHYSICAL EXAMINATION: This is a 84 year-old female in no apparent distress at the time of my examination. HEENT: Head is atraumatic, normocephalic. Pupils are equal, round. Sclerae anicteric. Conjunctivae are clear. Mucous membranes of the mouth are moist. Neck is supple. There is no jugular venous distention. No carotid bruit is heard. CHEST EXAMINATION: Lungs are diminished with rhonchi. No chest wall tenderness is noted on palpation or with deep breathing. HEART EXAMINATION: Heart regular rate and rhythm. S1, S2 heard. No murmurs, gal lops or rub. ABDOMEN: Soft, nontender. Bowel sounds are heard. EXTREMITIES: 2+ peripheral pulses with no evidence of peripheral edema and no calf tenderness noted. NEUROLOGIC EXAMINATION: Patient is awake, alert and oriented x3. Assessment Acute hypoxic and hypercapnic respiratory failure secondary to a combination of COPD and CHF CHF exacerbation, diastolic, of unknown etiology COPD Hypertension Multiple comorbid conditions Leukocytosis Plan ECHO showed EF 55-60% OK to downgrade from cardiac standpoint Resume home lasix Likely discharge home tomorrow. Further recommendation pending clinical course I am dictating on behalf of Dr. Adonis Sanon's history/physical and assessment/plan. Objective - Vital Signs Vital signs: Vital Signs Temp 98.3 F 10/09/24 08:00 Pulse 88 10/09/24 09:46 Resp 16 10/09/24 09:24 BP 127/58 10/09/24 08:00 Pulse Ox 96 10/09/24 09:24 FiO2 35 10/08/24 11:01 Intake & Output 10/08/24 10/09/24 10/09/24 18:59 06:59 18:59 Intake Total 1339.051 340 130 Output Total 2245 1145 300 Balance -905.949 -805 -170 Weight 71.1 kg Intake: IV 543 340 130 0.9 210 240 80 Azithromycin 500 mg In 250 Sodium Chloride 0.9% 250 ml @ 250 mls/hr IVPB DAILY [facility] Rx#:[id number] Magnesium Sulfate-D5w Pmx 100 1 gm In Dextrose/Water 1 100ml.bag @ 100 mls/hr IVPB ONCE ONE Rx#: [id number] Pressure Bag 33 cefTRIAXone 1 gm In 50 50 Sodium Chloride 0.9% 50 ml @ 100 mls/hr IVPB Q24HR [facility] Rx#:[id number] Intake, IV Titration 100.051 Amount propofoL 1,000 mg In 100.051 Empty Bag 1 bag @ 15 MCG/ KG/MIN 5.593 mls/hr IV . [id number] [facility] Rx#:[id number] Oral 600 Tube Feeding 66 Other 30 Output: Urine 2245 1145 300 Other: Voiding Method Indwelling Catheter Indwelling Catheter Indwelling Catheter # Bowel Movements 1 ABP, PAP, CO, CI - Last Documented Arterial Blood Pressure 150/46 - Labs CBC & Chem 7: 10/09/24 02:33 10/09/24 02:33 Labs: Abnormal Lab Results - Last 24 Hours (Table) 10/08/24 10/08/24 10/09/24 Range/Units 05:06 17:31 02:33 WBC (4.50-10.00) 10*3/uL RBC (4.10-5.20) 10*6/uL Hgb (12.0-15.0) g/dL Hct (37.2-46.3) % MCH (27.0-32.0) pg MCHC (32.0-37.0) g/dL Immature Gran # (0.00-0.04) 10*3/uL Neutrophils # (1.80-7.70) 10*3/uL Lymphocytes # (0.90-5.00) 10*3/uL Monocytes # (0.20-1.00) 10*3/uL Eosinophils # (0.04-0.35) 10*3/uL Chloride 87 L (98-107) mmol/L Carbon Dioxide 46 H* (22-30) mmol/L BUN 56 H (7-17) mg/dL Creatinine 1.24 H (0.52-1.04) mg/dL Glucose 132 H (74-99) mg/dL POC Glucose (mg/dL) 197 H (70-110) mg/dL Procalcitonin 0.99 H (0.02-0.50) ng/mL 10/09/24 Range/Units 02:33 WBC 27.70 H (4.50-10.00) 10*3/uL RBC 3.69 L (4.10-5.20) 10*6/uL Hgb 9.6 L (12.0-15.0) g/dL Hct 32.3 L (37.2-46.3) % MCH 26.0 L (27.0-32.0) pg MCHC 29.7 L (32.0-37.0) g/dL Immature Gran # 0.67 H (0.00-0.04) 10*3/uL Neutrophils # 25.19 H (1.80-7.70) 10*3/uL Lymphocytes # 0.45 L (0.90-5.00) 10*3/uL Monocytes # 1.33 H (0.20-1.00) 10*3/uL Eosinophils # 0.00 L (0.04-0.35) 10*3/uL Chloride (98-107) mmol/L Carbon Dioxide (22-30) mmol/L BUN (7-17) mg/dL Creatinine (0.52-1.04) mg/dL Glucose (74-99) mg/dL POC Glucose (mg/dL) (70-110) mg/dL Procalcitonin (0.02-0.50) ng/mL Microbiology - Last 24 Hours (Table) 10/05/24 23:13 Blood Culture - Preliminary Blood
[2024-10-09] MEDS: FUROSEMIDE 20 MG TAB PO SCH (15:42)
--- NOTE | 2024-10-09 19:06 | P.PN ---
Subjective Progress Note Date: 10/09/24 Patient remains in intensive care unit where she is being treated for acute COPD exacerbation patient is status post mechanical ventilation and intubation she is currently extubated and maintaining oxygen saturations on 2 L nasal cannula. She continues on a course of IV Solu-Medrol as well as IV ceftriaxone. She has been continued on Lasix IV every 12 hours which has been discontinued. Chest xray reveals improved aeration of lungs. Her renal function has been worsening today showing a BUN of 56 creatinine of 1.24. Procalcitonin level elevated at 0.99. Echocardiogram currently pending Review review of Systems Constitutional: Denied any fatigue denied any fever. Cardio vascular: denied any chest pain, palpitations Gastrointestinal: denied any nausea, vomiting, diarrhea Pulmonary: Denied any shortness of breath cough Neurologic denied any new focal deficits All inpatient medications were reviewed and appropriate changes in these medications as dictated in the interval history and assessment and plan. PHYSICAL EXAMINATION: GENERAL: The patient is alert and oriented x3, not in any acute distress. Well developed, well nourished. HEENT: Pupils are round and equally reacting to light. EOMI. No scleral icterus. No conjunctival pallor. Normocephalic, atraumatic. No pharyngeal erythema. No thyromegaly. CARDIOVASCULAR: S1 and S2 present. No murmurs, rubs, or gallops. PULMONARY: Chest is clear to auscultation, no wheezing or crackles. ABDOMEN: Soft, nontender, nondistended, normoactive bowel sounds. No palpable organomegaly. MUSCULOSKELETAL: No joint swelling or deformity. EXTREMITIES: No cyanosis, clubbing, or pedal edema. NEUROLOGICAL: Gross neurological examination did not reveal any focal deficits. SKIN: No rashes. Assessment Acute on Chronic hypoxemic respiratory failure status post intubation and mechanical ventilation; currently extubated on 10/08 and on 2L of oxygen via nasal cannula Acute COPD exacerbation and tracheobronchitis with sepsis Oxygen dependent COPD Acute kidney injury likely from over diuresis Leukocytosis, possibly steroid induceed Elevated troponins, likely related supply/demand mismatch Hypertension Gi prophylaxis DVT prophylaxis Full Code Plan Sputum culture collected on admission but not received by lab Obtain sputum culture Continue IV ceftriaxone Patient has been transitioned to oral prednisone Lasix has been placed on hold Monitor electrolytes and renal function Echocardiogram taken and pending Patient has been downgraded from the ICU and currently pending a bed on the medical floor. PT/OT consultation The impression and plan of care has been dictated by Rosalie Mackenzie Nurse Practitioner as directed. Dr. Morelia MD I have performed a history and physical examination and medical decision making of this patient, discussed the same with the dictator, and agree with the dictators assessment and plan as written, documented as a scribe. Based on total visit time, I have performed more than 50% of this visit. Objective - Vital Signs Vital signs: Vital Signs Temp 98.8 F 10/09/24 04:00 Pulse 94 10/09/24 07:00 Resp 18 10/09/24 07:00 BP 145/95 10/09/24 07:00 Pulse Ox 91 L 10/09/24 07:00 FiO2 35 10/08/24 11:01 Intake & Output 10/08/24 10/09/24 10/09/24 18:59 06:59 18:59 Intake Total 1339.051 340 20 Output Total 2245 1145 50 Balance -905.949 -805 -30 Weight 71.1 kg Intake: IV 543 340 20 0.9 210 240 20 Azithromycin 500 mg In 250 Sodium Chloride 0.9% 250 ml @ 250 mls/hr IVPB DAILY [facility] Rx#:[id number] Magnesium Sulfate-D5w Pmx 100 1 gm In Dextrose/Water 1 100ml.bag @ 100 mls/hr IVPB ONCE ONE Rx#: [id number] Pressure Bag 33 cefTRIAXone 1 gm In 50 Sodium Chloride 0.9% 50 ml @ 100 mls/hr IVPB Q24HR [facility] Rx#:[id number] Intake, IV Titration 100.051 Amount propofoL 1,000 mg In 100.051 Empty Bag 1 bag @ 15 MCG/ KG/MIN 5.593 mls/hr IV . [id number] [facility] Rx#:[id number] Oral 600 Tube Feeding 66 Other 30 Output: Urine 2245 1145 50 Other: Voiding Method Indwelling Catheter Indwelling Catheter # Bowel Movements 1 ABP, PAP, CO, CI - Last Documented Arterial Blood Pressure 150/46 - Labs CBC & Chem 7: 10/09/24 02:33 10/09/24 02:33 Labs: Abnormal Lab Results - Last 24 Hours (Table) 10/08/24 10/08/24 10/08/24 Range/Units 10:25 11:34 17:31 WBC (4.50-10.00) 10*3/uL RBC (4.10-5.20) 10*6/uL Hgb (12.0-15.0) g/dL Hct (37.2-46.3) % MCH (27.0-32.0) pg MCHC (32.0-37.0) g/dL Immature Gran # (0.00-0.04) 10*3/uL Neutrophils # (1.80-7.70) 10*3/uL Lymphocytes # (0.90-5.00) 10*3/uL Monocytes # (0.20-1.00) 10*3/uL Eosinophils # (0.04-0.35) 10*3/uL ABG pCO2 65 H (35-45) mmHg ABG pO2 69 L (83-108) mmHg ABG HCO3 44 H* (21-25) mmol/L ABG Total CO2 46 H (19-24) mmol/L ABG O2 Saturation 93.7 L (94-97) % Hemoglobin 9.9 L (11.4-16.0) gm/dL Chloride (98-107) mmol/L Carbon Dioxide (22-30) mmol/L BUN (7-17) mg/dL Creatinine (0.52-1.04) mg/dL Glucose (74-99) mg/dL POC Glucose (mg/dL) 121 H 197 H (70-110) mg/dL 10/09/24 10/09/24 Range/Units 02:33 02:33 WBC 27.70 H (4.50-10.00) 10*3/uL RBC 3.69 L (4.10-5.20) 10*6/uL Hgb 9.6 L (12.0-15.0) g/dL Hct 32.3 L (37.2-46.3) % MCH 26.0 L (27.0-32.0) pg MCHC 29.7 L (32.0-37.0) g/dL Immature Gran # 0.67 H (0.00-0.04) 10*3/uL Neutrophils # 25.19 H (1.80-7.70) 10*3/uL Lymphocytes # 0.45 L (0.90-5.00) 10*3/uL Monocytes # 1.33 H (0.20-1.00) 10*3/uL Eosinophils # 0.00 L (0.04-0.35) 10*3/uL ABG pCO2 (35-45) mmHg ABG pO2 (83-108) mmHg ABG HCO3 (21-25) mmol/L ABG Total CO2 (19-24) mmol/L ABG O2 Saturation (94-97) % Hemoglobin (11.4-16.0) gm/dL Chloride 87 L (98-107) mmol/L Carbon Dioxide 46 H* (22-30) mmol/L BUN 56 H (7-17) mg/dL Creatinine 1.24 H (0.52-1.04) mg/dL Glucose 132 H (74-99) mg/dL POC Glucose (mg/dL) (70-110) mg/dL Microbiology - Last 24 Hours (Table) 10/05/24 23:13 Blood Culture - Preliminary Blood Assessment and Plan Time with Patient: Less than 30
[2024-10-10 08:58] LABS: HCT 35.0 % (37.2-46.3); HGB 9.5 g/dL (12.0-15.0); MCH 24.5 pg (27.0-32.0); MCHC 27.1 g/dL (32.0-37.0); MCV 90.4 FL (80.0-97.0); NRBC Per 100 WBC 0 X 10*3/uL (0.00-0.01); Platelet Count 357 X 10*3/uL (140-440); RBC 3.87 X 10*6/uL (4.10-5.20); RDW 16.9 % (11.5-14.5); WBC 24.05 X 10*3/uL (4.50-10.00)
[2024-10-10 09:04] LABS: Magnesium 2.1 mg/dL (1.5-2.4)
[2024-10-10 09:35] LABS: Basophils # (A) 0.07 X 10*3/uL (0.00-0.10); Basophils % (A) 0.3 %; Eosinophils # (A) 0.02 X 10*3/uL (0.04-0.35); Eosinophils % (A) 0.1 %; Immature Grans, Automated 2.20 %; Lymphocytes # (A) 1.91 X 10*3/uL (0.90-5.00); Lymphocytes % (A) 7.9 %; Monocytes # (A) 2.18 X 10*3/uL (0.20-1.00); Monocytes % (A) 9.1 %; Neutrophils # (A) 19.35 X 10*3/uL (1.80-7.70); Neutrophils % (A) 80.4 %; Stomatocytes 2+ (None Seen)
[2024-10-10 09:51] LABS: Anion Gap 6.40 mmol/L (4.00-12.00); BUN/Creat Ratio 46.22 Ratio (12.00-20.00); Blood Urea Nitrogen 41.6 mg/dL (9.0-27.0); Calcium 8.5 mg/dL (8.7-10.3); Carbon Dioxide 43.6 mmol/L (21.6-31.8); Chloride 93 mmol/L (96-109); Glucose 102 mg/dL (70-110); Potassium 4.6 mmol/L (3.5-5.5); Sodium 143 mmol/L (135-145)
--- NOTE | 2024-10-10 12:45 | P.PN ---
Subjective Progress Note Date: 10/10/24 Patient is an 84-year-old female with little documented past medical history. She was living in [place] and has recently moved back to [place]. Her is recently . She has no children. She does have a niece who was contacted and provided limited information. Apparently, patient was recently hospitalized at [facility] for acute COPD and CHF exacerbation and released last week. Presents to the emergency department yesterday evening with increased work of breathing increased. Leg edema was noted. Family was concerned that the patient was confused. ABG consistent with severe hypoxemic and hypercapnic respiratory failure. She was placed on BiPAP in the ED. Chest x-ray showing enlarged cardiac silhouette with diffuse interstitial prominence. NT-proBNP was elevated at 3020. Additional labs including a CBC with a severely elevated WBC count of 56, hemoglobin 11.3 g/dL, platelets 344. CMP: Sodium 137, potassium 5, chloride 91, serum bicarb 35, BUN 26, creatinine 0.73, glucose 214. Lactic was 4.2 and is down to 2. LFTs mildly elevated. Troponin 0.08. Viral 4 Plex negative for influenza A/B, RSV, COVID. Patient currently being evaluated in the emergency department trauma bay 3. She is difficult to arouse, only grimaces to painful stimuli. I asked for repeat blood gas which does not show any significant improvement in her acid-base balance, PO2 was 84, pCO2 greater than 98, pH of 7.01. She is on BiPAP with settings 14/7 and FiO2 of 60%. Tidal volumes are low around 150 cc. I did call the patient's listed next of kin, who is a niece, and they previously discussed that the patient is a full code and okay with intubation. Patient was seen today on 10/07/2024, remains in the ICU, intubated and mechanically ventilated, patient is on assist-control rate of 18 and I cut it down to 14 tidal volume 400 FiO2 40% PEEP of 5 ABG showed a pO2 of 82 pCO2 56 pH of 7.46. Patient is on propofol at 50 mcg/kg/min she is also on IV fluid at 0.9 normal saline 10 cc/h. Receiving Lasix 40 mg every 12 hours, chest x-ray showed significant improvement in her interstitial edema, minimal hazy opacity noted in the right upper lobe, doubt clinical significance. Patient remains in atrial fibrillation but with a relatively controlled rate, chest x-ray showed again mostly COPD findings today. Patient continues to have leukocytosis with WBC count of 29.46 hemoglobin is 9 electrolytes are normal bicarb is elevated at 57 which implies that the patient is chronically metabolically compensating for severe hypercapnia. BNP level is mildly elevated at 2420, improved compared to BNP on admission 10/05/2024 was over 3000. Patient remains sedated, not agitated, and I plan to give the patient a trial sedation interruption and assessment of mental status today, however I do not believe the patient is ready to be weaned and extubated. Patient was seen today on 10/08/24, remains in the ICU, intubated and mechanically ventilated, patient is on assist-control rate of 14 tidal volume 400 FiO2 40% anticolic down to 35% PEEP of 5 ABG showed a PO2 of 84 pCO2 66 pH of 7.43. Patient remains on propofol at 50 mcg/kg/min however we recommended holding the propofol this morning and holding vital HP. Patient is on maximal bronchodilators and steroids, she is also on empiric antibiotics utilizing Rocephin and Zithromax, she is on Lasix 40 mg IV push twice daily. While I was rounding, patient was noted to to be awake, and she was following all simple ins tructions, did not seem to be in distress, hence I transitioned her mode of mechanical ventilation to pressure support of 10 and CPAP. Recommended repeat ABG and weaning parameters in half hour, and if they seem to be reasonable, could consider the patient for extubation from mechanical ventilation. WBC count is 23.6 hemoglobin 9.1. Electrolytes are normal bicarb is 41 which is expected considering her severe COPD and chronic hypercapnia BUN is 51 creatinine 1.06. Chest x-ray showed cardiomegaly, minimal pleural effusions, consistent with mild congestive heart failure. BNP on admission was over 3000 patient was seen by cardiology on 10/07/2024. Patient was seen today on 10/09/2024, remains in the ICU, patient was extubated yesterday, and she tolerated the extubation well. She is now on 2 L nasal cannula, she is normally on home O2 according to the patient, she is normally on multiple bronchodilators and she is normally on prednisone. We have never seen this patient before prior to this admission, apparently she has been in [place], and [facility] Patient remains on multiple bronchodilators, she is on DuoNeb, she is on Solu-Medrol, she is also on Perforomist and budesonide. No cough no wheezing no shortness of breath, hence I plan to transfer the patient out of the ICU sometime later today to regular medical floor, and I plan to monitor the patient for the next 24 hours, and if she continues to do well we will likely recommend discharge home in 24 hours. At this point she remains marginal she just got extubated yesterday, and she does have based on the history quite severe COPD. Continues to have leukocytosis with WC of 27.7 hemoglobin is 9.6, electrolytes are normal except for bicarb of 46, and this is indicative of the patient having severe hypercapnia with chronic metabolic compensation. Patient is now off diuretics as she developed worsening BUN and worsening creatinine 1.24 chest x-ray showed improvement in her interstitial edema Lasix is now presently on hold. The patient is seen today October 10, 2024 in follow-up on the regular medical floor. She was transferred out of the ICU yesterday. She is currently sitting up in bed. Awake and alert in no acute distress. Denies any worsening shortness of breath, cough or congestion. She is maintaining O2 saturations in the 90s on 3 L/min per nasal cannula. She is afebrile. Hemodynamically stable. Blood culture revealed no growth. White count 24.0. Hemoglobin 9.5. Platelets 357. Sodium 143. Potassium 4.6. Bicarb 44. BUN 42. Creatinine 0.9. Glucose 102. She remains on DuoNeb inhalations, Pulmicort and Perforomist inhalations, prednisone taper. Heparin for DVT prophylaxis. Remains on oral diuretics. Remains on ceftriaxone. Objective - Vital Signs Vital signs: Vital Signs Temp 97.6 F 10/10/24 07:11 Pulse 82 10/10/24 09:58 Resp 16 10/10/24 08:11 BP 147/69 10/10/24 07:11 Pulse Ox 93 L 10/10/24 09:40 FiO2 35 10/08/24 11:01 Intake & Output 10/09/24 10/10/24 10/10/24 18:59 06:59 18:59 Intake Total 130 Output Total 525 925 Balance -395 -925 Weight 68.2 kg Intake: IV 130 0.9 80 cefTRIAXone 1 gm In 50 Sodium Chloride 0.9% 50 ml @ 100 mls/hr IVPB Q24HR [facility] Rx#:[id number] Output: Urine 525 925 Other: Voiding Method Indwelling Catheter Indwelling Catheter Indwelling Catheter # Voids 1 # Bowel Movements 1 ABP, PAP, CO, CI - Last Documented Arterial Blood Pressure 150/46 - Exam GENERAL EXAM: Alert, active, pleasant 84-year-old female, on 3 L nasal cannula, comfortable in no apparent distress. HEAD: Normocephalic. EYES: Normal reaction of pupils, equal size. NOSE: Clear with pink turbinates. THROAT: No erythema or exudates. NECK: No masses, no JVD. CHEST: No chest wall deformity. LUNGS: Equal air entry with faint end expiratory wheeze, diminished. CVS: S1 and S2 normal with no audible murmur, regular rhythm. ABDOMEN: No hepatosplenomegaly, normal bowel sounds, no guarding or rigidity. SPINE: No scoliosis or deformity SKIN: No rashes CENTRAL NERVOUS SYSTEM: No focal deficits, tone is normal in all 4 extremities. EXTREMITIES: There is no peripheral edema. No clubbing, no cyanosis. Peripheral pulses are intact. - Labs CBC & Chem 7: 10/10/24 05:27 10/10/24 05:27 Labs: Abnormal Lab Results - Last 24 Hours (Table) 10/10/24 10/10/24 Range/Units 05:27 05:27 WBC 24.05 H (4.50-10.00) X 10*3/uL RBC 3.87 L (4.10-5.20) X 10*6/uL Hgb 9.5 L (12.0-15.0) g/dL Hct 35.0 L (37.2-46.3) % MCH 24.5 L (27.0-32.0) pg MCHC 27.1 L (32.0-37.0) g/dL RDW 16.9 H (11.5-14.5) % Immature Gran # 0.52 H (0.00-0.04) X 10*3/uL Neutrophils # 19.35 H (1.80-7.70) X 10*3/uL Monocytes # 2.18 H (0.20-1.00) X 10*3/uL Eosinophils # 0.02 L (0.04-0.35) X 10*3/uL Stomatocytes 2+ A (None Seen) Chloride 93 L (96-109) mmol/L Carbon Dioxide 43.6 A* (21.6-31.8) mmol/L BUN 41.6 H (9.0-27.0) mg/dL BUN/Creatinine Ratio 46.22 H (12.00-20.00) Ratio Calcium 8.5 L (8.7-10.3) mg/dL Assessment and Plan Assessment: Acute hypoxic and acute on chronic hypercapnic respiratory failure, patient failed BiPAP, required intubation mechanical ventilation. Recovered and on 3 L nasal cannula Possible mild diastolic congestive heart failure, with mild congestive heart failure and elevated BNP level echocardiogram is pending Severe leukocytosis, secondary to acute exacerbation of COPD and tracheobronchitis, doubt pneumonia specially with significant improvement noted on chest x-ray today. Acute sepsis secondary to acute tracheobronchitis, doubt pneumonia. Although pneumonia is not entirely ruled out. Elevated troponins, likely related supply/demand mismatch History of hypertension Acute kidney injury, recovered Plan: The patient was seen and evaluated Labs and medications reviewed Stable on 3 L nasal cannula Continue DuoNeb inhalations Continue Pulmicort and Perforomist inhalations Continue prednisone taper Remains on ceftriaxone Heparin for DVT prophylaxis Remains on oral diuretics Titrate down the FiO2 as tolerated Increase her activity as tolerated Possible discharge in the a.m. We will continue to follow I have personally seen and examined the patient, performed the documentation and the assessment and plan as written. Number of minutes spent on the visit: 10 Dictation was produced using [employer] dictation software. Please excuse any grammatical, word or spelling errors.
--- NOTE | 2024-10-10 13:00 | P.PN ---
Subjective Progress Note Date: 10/10/24 The patient is an 84-year-old female patient who we consulted to see in the ICU for heart failure. She was is intubated on mechanical ventilation. The patient presented to the emergency department with progressive shortness of breath and she was found to be hypoxic and hypercapnic. She did not respond to BiPAP. Subsequently she was intubated and placed on mechanical ventilation. She is known to have COPD and CHF of unknown etiology. Echocardiogram was performed and still pending. No indication that the patient was experiencing any symptoms of chest pain or chest discomfort. She was noted to have bilateral lower extremities pitting edema. The chest x-ray showed finding consistent with COPD with small bilateral pleural effusion. The patient was placed on Lasix IV and also she was placed on antibiotic and she is getting treated for COPD/pneumonia. No previous medical records in EMR at this point. The echo was performed last night we will follow-up on that. Blood work showed anemia with a hemoglobin around 9. NT-proBNP 2420. Sodium and potassium are within normal limits. GFR is at 54. The physical examination is remarkable for regular rhythm with a systolic murmur at the right upper sternal border and bilateral rhonchi and also bilateral lower extremities pitting edema was noted. Since the patient was placed on Lasix she has been responding well. 10/08/24 She was extubated this am. Breathing is feeling ok. No chest pain or pressure. No edema. WBC 23, Hgb 9.1, creat 1.06, K+ 3.6. ECHO showed EF 55-60%, severe bi- atrial enlaragement, mild TR. She has recently relocated from [place]. 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 Pt is a poor historian. 10/09/2024 She has been feeling well. No chest pain. Dyspnea is stable. Creat 1.2. 10/10/24 Feeling well. Denies any chest pain or shortness of breath has improved. She has been ambulatory to the restroom. She does have some lower extremity edema this morning. WBC 24, hemoglobin 9.5, creatinine 0.9, potassium 4.6. PHYSICAL EXAMINATION: This is a 84 year-old female in no apparent distress at the time of my examination. HEENT: Head is atraumatic, normocephalic. Pupils are equal, round. Sclerae anicteric. Conjunctivae are clear. Mucous membranes of the mouth are moist. Neck is supple. There is no jugular venous distention. No carotid bruit is heard. CHEST EXAMINATION: Lungs are diminished with rhonchi. No chest wall tenderness is noted on palpation or with deep breathing. HEART EXAMINATION: Heart regular rate and rhythm. S1, S2 heard. No murmurs, gallops or rub. ABDOMEN: Soft, nontender. Bowel sounds are heard. EXTREMITIES: 2+ peripheral pulses with no evidence of peripheral edema and no calf tenderness noted. NEUROLOGIC EXAMINATION: Patient is awake, alert and oriented x3. Assessment Acute hypoxic and hypercapnic respiratory failure secondary to a combination of COPD and CHF CHF exacerbation, diastolic, of unknown etiology COPD Hypertension Multiple comorbid conditions Leukocytosis Plan ECHO showed EF 55-60% Continue oral lasix 2 doses of Diamox 250mg po Likely discharge home tomorrow. Further recommendation pending clinical course I am dictating on behalf of Dr. Adonis Sanon's history/physical and assessment/plan. Objective - Vital Signs Vital signs: Vital Signs Temp 97.6 F 10/10/24 07:11 Pulse 82 10/10/24 09:58 Resp 16 10/10/24 08:11 BP 147/69 10/10/24 07:11 Pulse Ox 93 L 10/10/24 09:40 FiO2 35 10/08/24 11:01 Intake & Output 10/09/24 10/10/24 10/10/24 18:59 06:59 18:59 Intake Total 130 Output Total 525 925 Balance -395 -925 Weight 68.2 kg Intake: IV 130 0.9 80 cefTRIAXone 1 gm In 50 Sodium Chloride 0.9% 50 ml @ 100 mls/hr IVPB Q24HR [facility] Rx#:[id number] Output: Urine 525 925 Other: Voiding Method Indwelling Catheter Indwelling Catheter Indwelling Catheter # Voids 1 # Bowel Movements 1 ABP, PAP, CO, CI - Last Documented Arterial Blood Pressure 150/46 - Labs CBC & Chem 7: 10/10/24 05:27 10/10/24 05:27 Labs: Abnormal Lab Results - Last 24 Hours (Table) 10/10/24 10/10/24 Range/Units 05:27 05:27 WBC 24.05 H (4.50-10.00) X 10*3/uL RBC 3.87 L (4.10-5.20) X 10*6/uL Hgb 9.5 L (12.0-15.0) g/dL Hct 35.0 L (37.2-46.3) % MCH 24.5 L (27.0-32.0) pg MCHC 27.1 L (32.0-37.0) g/dL RDW 16.9 H (11.5-14.5) % Immature Gran # 0.52 H (0.00-0.04) X 10*3/uL Neutrophils # 19.35 H (1.80-7.70) X 10*3/uL Monocytes # 2.18 H (0.20-1.00) X 10*3/uL Eosinophils # 0.02 L (0.04-0.35) X 10*3/uL Stomatocytes 2+ A (None Seen) Chloride 93 L (96-109) mmol/L Carbon Dioxide 43.6 A* (21.6-31.8) mmol/L BUN 41.6 H (9.0-27.0) mg/dL BUN/Creatinine Ratio 46.22 H (12.00-20.00) Ratio Calcium 8.5 L (8.7-10.3) mg/dL
[2024-10-10] MEDS: acetaZOLAMIDE 250 MG TAB PO SCH (13:34)
--- NOTE | 2024-10-10 15:24 | P.PN ---
Subjective Progress Note Date: 10/10/24 Patient remains in intensive care unit where she is being treated for acute COPD exacerbation patient is status post mechanical ventilation and intubation she is currently extubated and maintaining oxygen saturations on 2 L nasal cannula. She continues on a course of IV Solu-Medrol as well as IV ceftriaxone. She has been continued on Lasix IV every 12 hours which has been discontinued. Chest xray reveals improved aeration of lungs. Her renal function has been worsening today showing a BUN of 56 creatinine of 1.24. Procalcitonin level elevated at 0.99. Echocardiogram currently pending 10/10/2024 Patient is evaluated in follow-up in the medical floor. Patient has been transferred out of the intensive care unit. She is currently maintaining oxygen saturations of 92% on 3 L of nasal cannula. She is reporting less shortness of breath. Pending PT evaluation. Patient is also continued on IV ceftriaxone and DuoNebs [id number]. She has not started on oral Diamox for 2 doses. She was transition to oral Lasix. Patient is also on oral prednisone. Her echocardiogram is still pending. Her labs are showing a BUN of 41.6 creatinine of 0.9. White blood cell count of 24.05. Review review of Systems Constitutional: Denied any fatigue denied any fever. Cardio vascular: denied any chest pain, palpitations Gastrointestinal: denied any nausea, vomiting, diarrhea Pulmonary: Denied any shortness of breath cough Neurologic denied any new focal deficits All inpatient medications were reviewed and appropriate changes in these medications as dictated in the interval history and assessment and plan. PHYSICAL EXAMINATION: GENERAL: The patient is alert and oriented x3, not in any acute distress. Well developed, well nourished. HEENT: Pupils are round and equally reacting to light. EOMI. No scleral icterus. No conjunctival pallor. Normocephalic, atraumatic. No pharyngeal erythema. No thyromegaly. CARDIOVASCULAR: S1 and S2 present. No murmurs, rubs, or gallops. PULMONARY: Chest is clear to auscultation, no wheezing or crackles. ABDOMEN: Soft, nontender, nondistended, normoactive bowel sounds. No palpable organomegaly. MUSCULOSKELETAL: No joint swelling or deformity. EXTREMITIES: No cyanosis, clubbing, or pedal edema. NEUROLOGICAL: Gross neurological examination did not reveal any focal deficits. SKIN: No rashes. Assessment Acute on Chronic hypoxemic respiratory failure status post intubation and mechanical ventilation; currently extubated on 10/08 and on 2L of oxygen via nasal cannula Acute COPD exacerbation and tracheobronchitis with sepsis Oxygen dependent COPD Acute kidney injury likely from over diuresis Leukocytosis, possibly steroid induceed Elevated troponins, likely related supply/demand mismatch Hypertension Gi prophylaxis DVT prophylaxis Full Code Plan Sputum culture collected on admission but not received by lab Obtain sputum culture Continue IV ceftriaxone Patient has been transitioned to oral prednisone Continue oral Lasix Monitor electrolytes and renal function Echocardiogram taken and pending Patient has been downgraded from the ICU and currently pending a bed on the medical floor. PT/OT consultation for discharge planning Recommend outpatient hematology consultation Discharge in the next 24 hours The impression and plan of care has been dictated by Rosalie Mackenzie Nurse Practitioner as directed. Dr. Morelia MD I have performed a history and physical examination and medical decision making of this patient, discussed the same with the dictator, and agree with the dictators assessment and plan as written, documented as a scribe. Based on total visit time, I have performed more than 50% of this visit. Objective - Vital Signs Vital signs: Vital Signs Temp 97.6 F 10/10/24 07:11 Pulse 82 10/10/24 09:58 Resp 16 10/10/24 08:11 BP 147/69 10/10/24 07:11 Pulse Ox 93 L 10/10/24 09:40 FiO2 35 10/08/24 11:01 Intake & Output 10/09/24 10/10/24 10/10/24 18:59 06:59 18:59 Intake Total 130 Output Total 525 925 Balance -395 -925 Weight 68.2 kg Intake: IV 130 0.9 80 cefTRIAXone 1 gm In 50 Sodium Chloride 0.9% 50 ml @ 100 mls/hr IVPB Q24HR [facility] Rx#:[id number] Output: Urine 525 925 Other: Voiding Method Indwelling Catheter Indwelling Catheter Indwelling Catheter # Voids 1 # Bowel Movements 1 ABP, PAP, CO, CI - Last Documented Arterial Blood Pressure 150/46 - Labs CBC & Chem 7: 10/10/24 05:27 10/10/24 05:27 Labs: Abnormal Lab Results - Last 24 Hours (Table) 10/08/24 10/10/24 10/10/24 Range/Units 05:06 05:27 05:27 WBC 24.05 H (4.50-10.00) X 10*3/uL RBC 3.87 L (4.10-5.20) X 10*6/uL Hgb 9.5 L (12.0-15.0) g/dL Hct 35.0 L (37.2-46.3) % MCH 24.5 L (27.0-32.0) pg MCHC 27.1 L (32.0-37.0) g/dL RDW 16.9 H (11.5-14.5) % Immature Gran # 0.52 H (0.00-0.04) X 10*3/uL Neutrophils # 19.35 H (1.80-7.70) X 10*3/uL Monocytes # 2.18 H (0.20-1.00) X 10*3/uL Eosinophils # 0.02 L (0.04-0.35) X 10*3/uL Stomatocytes 2+ A (None Seen) Chloride 93 L (96-109) mmol/L Carbon Dioxide 43.6 A* (21.6-31.8) mmol/L BUN 41.6 H (9.0-27.0) mg/dL BUN/Creatinine Ratio 46.22 H (12.00-20.00) Ratio Calcium 8.5 L (8.7-10.3) mg/dL Procalcitonin 0.99 H (0.02-0.50) ng/mL Assessment and Plan Time with Patient: Less than 30
[2024-10-11 08:19] LABS: Basophils # (A) 0.07 X 10*3/uL (0.00-0.10); Basophils % (A) 0.3 %; Eosinophils # (A) 0.06 X 10*3/uL (0.04-0.35); Eosinophils % (A) 0.2 %; HCT 38.4 % (37.2-46.3); HGB 10.1 g/dL (12.0-15.0); Immature Grans, Automated 3.30 %; Lymphocytes # (A) 2.58 X 10*3/uL (0.90-5.00); Lymphocytes % (A) 10.4 %; MCH 24.5 pg (27.0-32.0); MCHC 26.3 g/dL (32.0-37.0); MCV 93.2 FL (80.0-97.0); Monocytes # (A) 2.03 X 10*3/uL (0.20-1.00); Monocytes % (A) 8.2 %; NRBC Per 100 WBC 0 X 10*3/uL (0.00-0.01); Neutrophils # (A) 19.28 X 10*3/uL (1.80-7.70); Neutrophils % (A) 77.6 %; Platelet Count 357 X 10*3/uL (140-440); RBC 4.12 X 10*6/uL (4.10-5.20); RDW 17.1 % (11.5-14.5); WBC 24.85 X 10*3/uL (4.50-10.00)
[2024-10-11 08:33] LABS: Magnesium 2.0 mg/dL (1.5-2.4)
[2024-10-11 08:48] LABS: BUN/Creat Ratio 40.44 Ratio (12.00-20.00); Blood Urea Nitrogen 36.4 mg/dL (9.0-27.0); Chloride 92 mmol/L (96-109); Glucose 73 mg/dL (70-110); Potassium 4.8 mmol/L (3.5-5.5); Sodium 141 mmol/L (135-145)
[2024-10-11 08:49] LABS: Anion Gap 4.50 mmol/L (4.00-12.00); Calcium 8.7 mg/dL (8.7-10.3); Carbon Dioxide 44.5 mmol/L (21.6-31.8)
[2024-10-11 13:29] VITALS: BMI 22.8
--- NOTE | 2024-10-11 13:51 | P.PN ---
Subjective Progress Note Date: 10/11/24 Patient is an 84-year-old female with little documented past medical history. She was living in [place] and has recently moved back to [place]. Her is recently . She has no children. She does have a niece who was contacted and provided limited information. Apparently, patient was recently hospitalized at [facility] for acute COPD and CHF exacerbation and released last week. Presents to the emergency department yesterday evening with increased work of breathing increased. Leg edema was noted. Family was concerned that the patient was confused. ABG consistent with severe hypoxemic and hypercapnic respiratory failure. She was placed on BiPAP in the ED. Chest x-ray showing enlarged cardiac silhouette with diffuse interstitial prominence. NT-proBNP was elevated at 3020. Additional labs including a CBC with a severely elevated WBC count of 56, hemoglobin 11.3 g/dL, platelets 344. CMP: Sodium 137, potassium 5, chloride 91, serum bicarb 35, BUN 26, creatinine 0.73, glucose 214. Lactic was 4.2 and is down to 2. LFTs mildly elevated. Troponin 0.08. Viral 4 Plex negative for influenza A/B, RSV, COVID. Patient currently being evaluated in the emergency department trauma bay 3. She is difficult to arouse, only grimaces to painful stimuli. I asked for repeat blood gas which does not show any significant improvement in her acid-base balance, PO2 was 84, pCO2 greater than 98, pH of 7.01. She is on BiPAP with settings 14/7 and FiO2 of 60%. Tidal volumes are low around 150 cc. I did call the patient's listed next of kin, who is a niece, and they previously discussed that the patient is a full code and okay with intubation. Patient was seen today on 10/07/2024, remains in the ICU, intubated and mechanically ventilated, patient is on assist-control rate of 18 and I cut it down to 14 tidal volume 400 FiO2 40% PEEP of 5 ABG showed a pO2 of 82 pCO2 56 pH of 7.46. Patient is on propofol at 50 mcg/kg/min she is also on IV fluid at 0.9 normal saline 10 cc/h. Receiving Lasix 40 mg every 12 hours, chest x-ray showed significant improvement in her interstitial edema, minimal hazy opacity noted in the right upper lobe, doubt clinical significance. Patient remains in atrial fibrillation but with a relatively controlled rate, chest x-ray showed again mostly COPD findings today. Patient continues to have leukocytosis with WBC count of 29.46 hemoglobin is 9 electrolytes are normal bicarb is elevated at 57 which implies that the patient is chronically metabolically compensating for severe hypercapnia. BNP level is mildly elevated at 2420, improved compared to BNP on admission 10/05/2024 was over 3000. Patient remains sedated, not agitated, and I plan to give the patient a trial sedation interruption and assessment of mental status today, however I do not believe the patient is ready to be weaned and extubated. Patient was seen today on 10/08/24, remains in the ICU, intubated and mechanically ventilated, patient is on assist-control rate of 14 tidal volume 400 FiO2 40% anticolic down to 35% PEEP of 5 ABG showed a PO2 of 84 pCO2 66 pH of 7.43. Patient remains on propofol at 50 mcg/kg/min however we recommended holding the propofol this morning and holding vital HP. Patient is on maximal bronchodilators and steroids, she is also on empiric antibiotics utilizing Rocephin and Zithromax, she is on Lasix 40 mg IV push twice daily. While I was rounding, patient was noted to to be awake, and she was following all simple ins tructions, did not seem to be in distress, hence I transitioned her mode of mechanical ventilation to pressure support of 10 and CPAP. Recommended repeat ABG and weaning parameters in half hour, and if they seem to be reasonable, could consider the patient for extubation from mechanical ventilation. WBC count is 23.6 hemoglobin 9.1. Electrolytes are normal bicarb is 41 which is expected considering her severe COPD and chronic hypercapnia BUN is 51 creatinine 1.06. Chest x-ray showed cardiomegaly, minimal pleural effusions, consistent with mild congestive heart failure. BNP on admission was over 3000 patient was seen by cardiology on 10/07/2024. Patient was seen today on 10/09/2024, remains in the ICU, patient was extubated yesterday, and she tolerated the extubation well. She is now on 2 L nasal cannula, she is normally on home O2 according to the patient, she is normally on multiple bronchodilators and she is normally on prednisone. We have never seen this patient before prior to this admission, apparently she has been in [place], and she moved recently to [facility]. Patient remains on multiple bronchodilators, she is on DuoNeb, she is on Solu-Medrol, she is also on Perforomist and budesonide. No cough no wheezing no shortness of breath, hence I plan to transfer the patient out of the ICU sometime later today to regular medical floor, and I plan to monitor the patient for the next 24 hours, and if she continues to do well we will likely recommend discharge home in 24 hours. At this point she remains marginal she just got extubated yesterday, and she does have based on the history quite severe COPD. Continues to have leukocytosis with WC of 27.7 hemoglobin is 9.6, electrolytes are normal except for bicarb of 46, and this is indicative of the patient having severe hypercapnia with chronic metabolic compensation. Patient is now off diuretics as she developed worsening BUN and worsening creatinine 1.24 chest x-ray showed improvement in her interstitial edema Lasix is now presently on hold. The patient is seen today October 10, 2024 in follow-up on the regular medical floor. She was transferred out of the ICU yesterday. She is currently sitting up in bed. Awake and alert in no acute distress. Denies any worsening shortness of breath, cough or congestion. She is maintaining O2 saturations in the 90s on 3 L/min per nasal cannula. She is afebrile. Hemodynamically stable. Blood culture revealed no growth. White count 24.0. Hemoglobin 9.5. Platelets 357. Sodium 143. Potassium 4.6. Bicarb 44. BUN 42. Creatinine 0.9. Glucose 102. She remains on DuoNeb inhalations, Pulmicort and Perforomist inhalations, prednisone taper. Heparin for DVT prophylaxis. Remains on oral diuretics. Remains on ceftriaxone. The patient is seen today October 11, 2024 in follow-up on the regular medical floor. She is currently sitting up in a chair. Awake and alert in no acute distress. Maintaining good O2 saturations in the 90s on 3 L/min per nasal cannula. Normal saline at 10 mL/h. She is continued on DuoNeb and elations, Symbicort, prednisone taper. Heparin for DVT prophylaxis. Remains on oral diuretics. Remains on ceftriaxone. Blood culture revealed no growth. White count 24.8. Hemoglobin 10.1. Platelets 357. Sodium 141. Potassium 4.8. Bicarb 45. BUN 36. Creatinine 0.9. Glucose 73. Objective - Vital Signs Vital signs: Vital Signs Temp 97.7 F 10/11/24 08:00 Pulse 93 10/11/24 13:34 Resp 18 10/11/24 08:00 BP 127/69 10/11/24 09:20 Pulse Ox 95 10/11/24 09:51 FiO2 35 10/08/24 11:01 Intake & Output 10/10/24 10/11/24 10/11/24 18:59 06:59 18:59 Output Total 9 Balance -9 Weight 66.2 kg 66.2 kg Output: Urine 9 Other: Voiding Method Indwelling Catheter Toilet # Voids 1 3 # Bowel Movements 1 ABP, PAP, CO, CI - Last Documented Arterial Blood Pressure 150/46 - Exam GENERAL EXAM: Alert, pleasant 84-year-old female, sitting up in a chair, on 3 L nasal cannula, in no apparent distress. HEAD: Normocephalic. EYES: Normal reaction of pupils, equal size. NOSE: Clear with pink turbinates. THROAT: No erythema or exudates. NECK: No masses, no JVD. CHEST: No chest wall deformity. LUNGS: Equal air entry with faint end expiratory wheeze, diminished. CVS: S1 and S2 normal with no audible murmur, regular rhythm. ABDOMEN: No hepatosplenomegaly, normal bowel sounds, no guarding or rigidity. SPINE: No scoliosis or deformity SKIN: No rashes CENTRAL NERVOUS SYSTEM: No focal deficits, tone is normal in all 4 extremities. EXTREMITIES: There is no peripheral edema. No clubbing, no cyanosis. Peripheral pulses are intact. - Labs CBC & Chem 7: 10/11/24 03:49 10/11/24 03:49 Labs: Abnormal Lab Results - Last 24 Hours (Table) 10/11/24 10/11/24 Range/Units 03:49 03:49 WBC 24.85 H (4.50-10.00) X 10*3/uL Hgb 10.1 L (12.0-15.0) g/dL MCH 24.5 L (27.0-32.0) pg MCHC 26.3 L (32.0-37.0) g/dL RDW 17.1 H (11.5-14.5) % Immature Gran # 0.83 H (0.00-0.04) X 10*3/uL Neutrophils # 19.28 H (1.80-7.70) X 10*3/uL Monocytes # 2.03 H (0.20-1.00) X 10*3/uL Chloride 92 L (96-109) mmol/L Carbon Dioxide 44.5 A* (21.6-31.8) mmol/L BUN 36.4 H (9.0-27.0) mg/dL BUN/Creatinine Ratio 40.44 H (12.00-20.00) Ratio Microbiology - Last 24 Hours (Table) 10/05/24 23:13 Blood Culture - Final Blood Assessment and Plan Assessment: Acute hypoxic and acute on chronic hypercapnic respiratory failure, patient failed BiPAP, required intubation mechanical ventilation. Recovered and on 3 L nasal cannula Possible mild diastolic congestive heart failure, with mild congestive heart failure and elevated BNP level echocardiogram is pending Severe leukocytosis, secondary to acute exacerbation of COPD and tracheobronchitis, doubt pneumonia specially with significant improvement noted on chest x-ray today. Acute sepsis secondary to acute tracheobronchitis, doubt pneumonia. Although pneumonia is not entirely ruled out. Elevated troponins, likely related supply/demand mismatch History of hypertension Acute kidney injury, recovered Plan: The patient was seen and evaluated Labs and medications reviewed Stable on 3 L nasal cannula Continue DuoNeb inhalations Discontinue Pulmicort and Perforomist inhalations Add Symbicort Continue prednisone taper Completed ceftriaxone Heparin for DVT prophylaxis Remains on oral diuretics Titrate down the FiO2 as tolerated Has home oxygen in place Cleared for discharge Social work is working on placement We will continue to follow I have personally seen and examined the patient, performed the documentation and the assessment and plan as written. Number of minutes spent on the visit: 10 Dictation was produced using Dupl[employer]ation software. Please excuse any grammatical, word or spelling errors.
[2024-10-11 14:04] VITALS: BP 125/71; TEMP 97.8
[2024-10-11 16:32] VITALS: PULSE 83
[2024-10-11 16:45] VITALS: RESP 16
[2024-10-11] MEDS ORDERED: SYMBICORT 160-4.5 MCG INHALER INHALATION SCH (20:00)
--- NOTE | 2024-10-15 15:55 | P.DS ---
Providers Date of admission: 10/05/24 19:46 Expected date of discharge: 10/11/24 Attending physician: Vidal Ya MD Consults: 10/05/24 19:45 Consult Physician Routine Consulting Provider: Felton Ford Consult Reason/Comments: resp failure Do you want consulting provider notified?: Already Contacted 10/06/24 15:25 Consult Physician Routine Consulting Provider: Kev Villegas Consult Reason/Comments: chf Do you want consulting provider notified?: Yes Primary care physician: Garcia Gonzalez Hospital Course: Final diagnosis Acute on Chronic hypoxemic respiratory failure status post intubation and mechanical ventilation; currently extubated on 10/08 and on 2L of oxygen via nasal cannula Acute COPD exacerbation and tracheobronchitis with sepsis, present on admission Oxygen dependent COPD outpatient Acute kidney injury likely from over diuresis, improving Leukocytosis, possibly steroid induced Elevated troponins, likely type II FL secondary to supply demand mismatch due to respiratory failure Hypertension Gi prophylaxis DVT prophylaxis Full Code Discharge disposition Patient is being discharged in a stable condition with guarded prognosis to home. Patient will follow-up with Dr. Gonzalez in the outpatient setting upon discharge. Patient is to continue with prednisone taper and current medications and outpatient follow-up with pulmonary as scheduled. Total time taken is greater than 35 minutes. Hospital course Patient is an 84-year-old female who was admitted with acute COPD exacerbation with respiratory failure and sepsis, present on admission. Patient is status post mechanical ventilation and intubation she is currently extubated and maintaining oxygen saturations on 2 L nasal cannula. She was continued on IV Solu-Medrol as well as IV ceftriaxone. She has been continued on Lasix IV every 12 hours and chest xray reveals improved aeration of lungs. Patient is reporting to feeling much improved and was evaluated by physical therapy and will be going home with home care. Patient reports she chronically wears oxygen outpatient and has a nebulizer and inhalers as well. Patient has been cleared by consultations recommending close outpatient follow-up. Please refer to consultation notes for further HPI. Patient is high risk for readmissions given significant COPD. PHYSICAL EXAMINATION: GENERAL: The patient is alert and oriented x3, not in any acute distress. Well developed, well nourished. Elderly appearing HEENT: Pupils are round and equally reacting to light. EOMI. No scleral icterus. No conjunctival pallor. Normocephalic, atraumatic. No pharyngeal erythema. No thyromegaly. CARDIOVASCULAR: S1 and S2 present. No murmurs, rubs, or gallops. PULMONARY: Chest is clear to auscultation, no wheezing or crackles. ABDOMEN: Soft, nontender, nondistended, normoactive bowel sounds. No palpable organomegaly. MUSCULOSKELETAL: No joint swelling or deformity. EXTREMITIES: No cyanosis, clubbing, or pedal edema. NEUROLOGICAL: Gross neurological examination did not reveal any focal deficits. SKIN: No rashes. Please refer to medication reconciliation sheet for a list of medications. The impression and plan of care has been dictated by Cristiane Yanes, Nurse Practitioner as directed. Dr. Morelia MD I have performed a history and examination and MDM of this patient, discussed the same with the dictator, and agree with the dictator's assessment and plan as written ,documented as a scribe. Based on total visit time, I have performed more than 50% of the visit. Patient Condition at Discharge: Fair Plan - Discharge Summary New Discharge Prescriptions: New Ipratropium-Albuterol Nebulize [Duoneb 0.5 mg-3 mg/3 ml Soln] 3 ml INHALATION RT-QID #100 each Ipratropium-Albuterol Nebulize [Duoneb 0.5 mg-3 mg/3 ml Soln] 3 ml INHALATION RT-Q2H PRN each PRN Reason: Shortness Of Breath Or Wheezing predniSONE See Taper PO DIRECTED #30 tab Acetaminophen Tab [Tylenol] 650 mg PO Q6HR PRN tab PRN Reason: Fever And/ Or Pain Budesonide-Formot 160-4.5 Mcg [Symbicort 160-4.5 Mcg Inhaler] 2 puff INHALAT ION RT-BID 30 Days #1 each Continue Pantoprazole [Protonix] 40 mg PO DAILY Donepezil [Aricept] 5 mg PO HS Furosemide [Lasix] 20 mg PO DAILY #30 tab Potassium Chloride ER [K-Dur 10] 10 meq PO DAILY Discontinued predniSONE See Taper PO DAILY Losartan [Cozaar] 25 mg PO DAILY Discharge Medication List Donepezil [Aricept] 5 mg PO HS 10/05/24 [History] Pantoprazole [Protonix] 40 mg PO DAILY 10/05/24 [History] Potassium Chloride ER [K-Dur 10] 10 meq PO DAILY 10/05/24 [History] Acetaminophen Tab [Tylenol] 650 mg PO Q6HR PRN tab 10/11/24 [Rx] Budesonide-Formot 160-4.5 Mcg [Symbicort 160-4.5 Mcg Inhaler] 2 puff INHALATION RT-BID 30 Days #1 each 10/11/24 [Rx] Furosemide [Lasix] 20 mg PO DAILY #30 tab 10/11/24 [Rx] Ipratropium-Albuterol Nebulize [Duoneb 0.5 mg-3 mg/3 ml Soln] 3 ml INHALATION RT-Q2H PRN each 10/11/24 [Rx] Ipratropium-Albuterol Nebulize [Duoneb 0.5 mg-3 mg/3 ml Soln] 3 ml INHALATION RT-QID #100 each 10/11/24 [Rx] predniSONE See Taper PO DIRECTED #30 tab 10/11/24 [Rx] Follow up Appointment(s)/Referral(s): Felton Ford MD [STAFF PHYSICIAN] - 11/03/24 1:00 pm Fernando Bundy [STAFF PHYSICIAN] - 1 Week Adonis Sanon DO [STAFF PHYSICIAN] - 10/19/24 9:15 am Garcia Gonzalez III, MD [Primary Care Provider] - 1-2 days (office did not answer at time of discharge, please call and make follow up appointment.) [facility], [NON-STAFF] - 1-2 Days ([facility] will call you to schedule the in home nursing, physical therapy, and occupational therapy visits. ) Patient Instructions/Handouts: COPD (Chronic Obstructive Pulmonary Disease) (DC) Activity/Diet/Wound Care/Special Instructions: Activity limited until follow-up Follow-up with primary care provider on discharge follow-up with pulmonary outpatient Follow-up with cardiology outpatient Continue taking medications as prescribed Discharge Disposition: HOME SELF-CARE
== END 2024-10-11 17:37 | disposition home or self-care (01) | DRG 871 ==
LOC: EC 17:15 → 3SCARD 19:46 → 2SICU 20:13 → 4SSUR 10-09 15:03
PROVIDERS: ADMIT Internal Medicine; ATTEND Internal Medicine
PROC: 5A09357 Assistance with Respiratory Ventilation, Less than 24 Consecutive Hours, Continuous Positive Airway Pressure (ICD-10-PCS; 2024-10-05)
PROC: 5A1945Z Respiratory Ventilation, 24-96 Consecutive Hours (ICD-10-PCS; principal; 2024-10-06)
PROC: 0BH17EZ Insertion of Endotracheal Airway into Trachea, Via Natural or Artificial Opening (ICD-10-PCS; 2024-10-06)
PROC: 4A133B1 Monitoring of Arterial Pressure, Peripheral, Percutaneous Approach (ICD-10-PCS; 2024-10-06)
PROC: 4A133J1 Monitoring of Arterial Pulse, Peripheral, Percutaneous Approach (ICD-10-PCS; 2024-10-06)
PROC: 03HY32Z Insertion of Monitoring Device into Upper Artery, Percutaneous Approach (ICD-10-PCS; 2024-10-06)
PROC: 3E0336Z Introduction of Nutritional Substance into Peripheral Vein, Percutaneous Approach (ICD-10-PCS; 2024-10-06)
DX: A41.9 Sepsis, unspecified organism (principal); I21.A1 Myocardial infarction type 2; I50.33 Acute on chronic diastolic (congestive) heart failure; J96.02 Acute respiratory failure with hypercapnia; J18.9 Pneumonia, unspecified organism; J96.21 Acute and chronic respiratory failure with hypoxia; J96.22 Acute and chronic respiratory failure with hypercapnia; J44.0 Chronic obstructive pulmonary disease with (acute) lower respiratory infection; I11.0 Hypertensive heart disease with heart failure; D64.9 Anemia, unspecified; I07.1 Rheumatic tricuspid insufficiency; J44.1 Chronic obstructive pulmonary disease with (acute) exacerbation; E87.20 Acidosis, unspecified; N17.9 Acute kidney failure, unspecified; I48.91 Unspecified atrial fibrillation; T50.2X5A Adverse effect of carbonic-anhydrase inhibitors, benzothiadiazides and other diuretics, initial encounter; J20.9 Acute bronchitis, unspecified; Z79.51 Long term (current) use of inhaled steroids; Z79.899 Other long term (current) drug therapy; Z87.891 Personal history of nicotine dependence; Z99.81 Dependence on supplemental oxygen; X58.XXXA Exposure to other specified factors, initial encounter
CPT/HCPCS: 36415; 36600; 71045; 80048; 80053; 82805; 83605; 83735; 83880; 84145; 84484; 85025; 85610; 85730; 87040; 87636; 93005; 93306; 94002; 94003; 94640; 94660; 94760; 96361; 96365; 96366; 96375; 96376; 99291

== ENCOUNTER 2024-11-01 15:14 | Observation (INO) | payer MEDICARE ==
[2024-11-01 15:43] LABS: Basophils # (A) 0.05 10*3/uL (0.00-0.10); Basophils % (A) 0.6 %; Eosinophils # (A) 0.24 10*3/uL (0.04-0.35); Eosinophils % (A) 3.0 %; HCT 35.1 % (37.2-46.3); HGB 10.1 g/dL (12.0-15.0); Lymphocytes # (A) 1.31 10*3/uL (0.90-5.00); Lymphocytes % (A) 16.1 %; MCH 25.4 pg (27.0-32.0); MCHC 28.8 g/dL (32.0-37.0); MCV 88.2 fL (80.0-97.0); Monocytes # (A) 0.90 10*3/uL (0.20-1.00); Monocytes % (A) 11.1 %; Neutrophils # (A) 5.62 10*3/uL (1.80-7.70); Neutrophils % (A) 69.1 %; Platelet Count 229 10*3/uL (140-440); RBC 3.98 10*6/uL (4.10-5.20); RDW 16.9 % (11.5-14.5); WBC 8.13 10*3/uL (4.50-10.00)
[2024-11-01] MEDS: IPRATROPIUM-ALBUTEROL 3 ML NEB INHALATION STA ×2 (15:53→17:35)
[2024-11-01 15:57] LABS: INR 0.9 (<1.2); Partial Thromboplastin Time 24.2 sec (22.0-30.0); Prothrombin Time 10.6 sec (10.0-12.5)
[2024-11-01] MEDS: methylPREDNISolone SOD SUCCI 125 MG/2 ML VIAL IV STA (15:57)
--- NOTE | 2024-11-01 16:01 | XR ---
EXAMINATION TYPE: XR chest 2V DATE OF EXAM: 11/01/2024 3:53 PM COMPARISON: 10/09/2024 CLINICAL INDICATION: Female, 84 years old with history of Weakness: Shortness of breath TECHNIQUE: XR chest 2V views of the chest are obtained. FINDINGS: Scattered senescent parenchymal changes noted. Hyperinflation compatible with COPD. No evidence for infiltrate. No evidence for atelectasis. Heart size is stable. Mediastinal structures are stable and grossly unremarkable. No evidence for hilar prominence. Degenerative changes dorsal spine. IMPRESSION: 1. No evidence for acute pulmonary disease. [facility], , 11/01/2024 3:58 PM
[2024-11-01 16:10] LABS: ALT 15 U/L (4-34); AST 23 U/L (14-36); African American GFR (CKD) 81 (>60 ml/min/1.73 sqM); Albumin 3.6 g/dL (3.5-5.0); Alkaline Phosphatase 71 U/L (38-126); Blood Urea Nitrogen 20 mg/dL (7-17); Calcium 8.9 mg/dL (8.4-10.2); Chloride 85 mmol/L (98-107); Glucose 110 mg/dL (74-99); Magnesium 1.8 mg/dL (1.6-2.3); Non-African American GFR(CKD) 71 (>60 ml/min/1.73 sqM); Potassium 4.0 mmol/L (3.5-5.1); Sodium 136 mmol/L (137-145); Total Protein 6.1 g/dL (6.3-8.2)
[2024-11-01 16:14] LABS: NT-Pro-B-Type Natriuretic Pept 576 pg/mL
[2024-11-01 16:16] LABS: Anion Gap 5 mmol/L
[2024-11-01 16:28] LABS: Carbon Dioxide 46 mmol/L (22-30)
[2024-11-01 16:32] LABS: RSV Not Detected (Not Detectd)
[2024-11-01 16:37] LABS: Bacteria,Urine Few /hpf; Hyaline Casts,Urine 3 /lpf (0-2); Mucus,Urine Rare /hpf; RBC,Urine <1 /hpf (0-5); Squamous Epithelial Cell,Urine 7 /hpf (0-4); WBC,Urine 2 /hpf (0-5)
[2024-11-01] MEDS ORDERED: IPRATROPIUM-ALBUTEROL 3 ML NEB INHALATION PRN (16:48)
[2024-11-01] MEDS ORDERED: ONDANSETRON 4 MG/2 ML VIAL IVP PRN (16:50)
[2024-11-01] MEDS ORDERED: NALOXONE 0.4 MG/ML 1 ML VIAL IV PRN (16:50)
[2024-11-01] MEDS: SODIUM CHLORIDE 0.9% 1,000 ML IV SCH (16:51)
--- NOTE | 2024-11-01 17:00 | ED ---
General Adult HPI - General Chief complaint: Weakness Stated complaint: poss UTI Time Seen by Provider: 11/01/24 15:18 Source: patient, RN notes reviewed, old records reviewed Mode of arrival: EMS Limitations: no limitations - History of Present Illness Initial comments: 84-year-old female who presents emergency department for increased weakness, shortness of breath. Is chronically on 2 L and using antibiotics at home. Was found at [facility] with mild shortness of breath that patient is been complaining about as well as some mildly increased lethargy. No confusion. She has a history of COPD, A-fib, heart failure, dementia. Is currently at her mental status baseline. Has been having increased urination lately as well. Concern for possible infection or UTI. Patient apparently was recently intubated for COPD and CHF exacerbation. Patient was discharged on October 11, 2024. She has been doing well but was sent here for further evaluation. Patient currently has no acute complaints. States she has been feeling somewhat more short of breath occasionally but otherwise is not confused at this time. Presents for further evaluation. - Related Data Home Medications Medication Instructions Recorded Confirmed Donepezil [Aricept] 5 mg PO HS@199910/05/24 11/01/24 Potassium Chloride ER [K-Dur 10] 10 meq PO DAILY@79910/05/24 11/01/24 Albuterol Inhaler [Ventolin Hfa 2 puff INHALATION RT-Q6H PRN 11/01/24 11/01/24 Inhaler] Budesonide-Formot 160-4.5 Mcg 2 puff INHALATION RT-BID@11/01/24 11/01/24 [Symbicort 160-4.5 Mcg Inhaler] Furosemide [Lasix] 40 mg PO DAILY@79911/01/24 11/01/24 Pantoprazole Sodium [Protonix] 20 mg PO DAILY@79911/01/24 11/01/24 Allergies Allergy/AdvReac Type Severity Reaction Status Date / Time No Known Allergies Allergy Verified 10/05/24 20:27 Review of Systems ROS Statement: Those systems with pertinent positive or pertinent negative responses have been documented in the HPI. Review of Systems: CONST: Denies fever EYES: Denies blurry vision ENT: Denies nasal congestion C/V: Denies Chest pain RESP: Endorses mild shortness of breath GI: Denies abdominal pain : Denies dysuria SKIN: Denies rash. MSK: Denies joint pain. NEURO: Denies headache ROS Other: All systems not noted in ROS Statement are negative. Past Medical History Past Medical History: Atrial Fibrillation, Heart Failure, COPD, Dementia History of Any Multi-Drug Resistant Organisms: Unobtainable Past Surgical History: Hysterectomy Past Psychological History: Anxiety, Depression Smoking Status: Former smoker Past Alcohol Use History: Unable to Obtain Past Drug Use History: Unable to Obtain General Exam - General Exam Comments Initial Comments: General: Appears in no acute distress. HEAD: Normal with no signs of head trauma. EYES: EOMI ENT: Hearing grossly intact, normal oropharynx. RESPIRATORY: Tight breath sounds bilaterally with wheezing. No significant respiratory distress. No significant hypoxia on baseline 2 to 3 L nasal cannula oxygen. C/V: Regular rate and rhythm. S1 and S2 auscultated, no edema, peripheral pulses 2+ and intact throughout ABD: Abd is soft, nontender, nondistended EXT: Normal range of motion, no obvious deformity SKIN: No rashes or lesions observed on exposed skin. NEURO: Alert and oriented x 4. No focal deficits. Mild conversational confusion which apparently is baseline. Limitations: no limitations Course Vital Signs 11/01/24 11/01/24 11/01/24 15:16 15:21 15:42 Temperature 98.3 F Pulse Rate 65 66 82 Respiratory 20 16 20 Rate Blood Pressure 169/68 169/68 169/68 O2 Sat by Pulse 96 98 98 Oximetry 11/01/24 11/01/24 11/01/24 15:55 16:01 16:02 Temperature Pulse Rate 71 85 Respiratory 18 18 20 Rate Blood Pressure O2 Sat by Pulse Oximetry Medical Decision Making - Medical Decision Making Was pt. sent in by a medical professional or institution (, PA, CIVIL PREPAREDNESS OFFICER, urgent care, hospital, or intermediate...) When possible be specific @ -Sent from [facility] for evaluation Did you speak to anyone other than the patient for history (EMS, parent, family, police, friend...)? What history was obtained from this source @ -Spoke with patient's niece who assists with past medical history and states patient is at current baseline mental status with some intermittent confusion. Did you review nursing and triage notes (agree or disagree)? Why? @ -I reviewed and agree with nursing and triage notes Were old charts reviewed (outside hosp., previous admission, EMS record, old EKG, old radiological studies, urgent care reports/EKG's, intermediate records)? Report findings @ -Reviewed prior visit from earlier October 2024 when she was intubated for hypoxic and hypercapnic respiratory failure. Differential Diagnosis (chest pain, altered mental status, abdominal pain women, abdominal pain men, vaginal bleeding, weakness, fever, dyspnea, syncope, headache, dizziness, GI bleed, back pain, seizure, CVA, palpatations, mental health, musculoskeletal)? @ -Differential Dyspnea: Coronary syndrome, arrhythmia, tamponade, asthma, COPD, pulmonary embolism, pneumonia, pneumothorax, pulmonary effusion, anaphylaxis, diabetic ketoacidosis, flailed chest, pulmonary contusion, diaphragmatic rupture, anemia, neuromuscular, this is not meant to be an all-inclusive list. EKG interpreted by me (3pts min.). @ -As above X-rays interpreted by me (1pt min.). @ -Chest x-ray shows no obvious acute cardiopulmonary process. CT interpreted by me (1pt min.). @ -None done U/S interpreted by me (1pt. min.). @ -None done What testing was considered but not performed or refused? (CT, X-rays, U/S, labs)? Why? @ -None What meds were considered but not given or refused? Why? @ -None Did you discuss the management of the patient with other professionals (professionals i.e. , PA, CIVIL PREPAREDNESS OFFICER, lab, RT, psych nurse, criminal justice social worker, channel worker, teacher, weapons officer, rn case manager hospice)? Give summary @ -Spoke with Dr. Malhotra of [facility] who accepted the admission. Was smoking cessation discussed for >3mins.? @ -No Was critical care preformed (if so, how long)? @ -No Were there social determinants of health that impacted care today? How? (Homelessness, low income, unemployed, alcoholism, drug addiction, transportation, low edu. Level, literacy, decrease access to med. care, long term, rehab)? @ -No Was there de-escalation of care discussed even if they declined (Discuss DNR or withdrawal of care, Hospice)? DNR status @ -No What co-morbidities impacted this encounter? (DM, HTN, Smoking, COPD, CAD, Cancer, CVA, ARF, Chemo, Hep., AIDS, mental health diagnosis, sleep apnea, morbid obesity)? @ -CHF, COPD, atrial fibrillation Was patient admitted / discharged? Hospital course, mention meds given and route, prescriptions, significant lab abnormalities, going to OR and other pertinent info. @ -Presents emergency department complaining of shortness of breath, some weakness, as well as some polyuria. Vitals are within acceptable limits. Is on her normal baseline oxygen at this time. She has no confusion at this time. Is acting normally. We will obtain respiratory laboratory studies as well as chest x-ray and EKG. Patient was in agreement this plan. She is given IV steroids, breathing treatment. EKG shows no signs of acute ischemia. Chest x-ray shows no obvious acute cardiopulmonary process. Laboratory studies are all within acceptable limits. She has what appears to be chronic elevation in her carbon dioxide likely from her COPD, and the on discharge was 44.5 and today minimally elevated to 46. P atient has chronic anemia which is stable. Negative viral swabs. Urinalysis within normal limits doubt concern for UTI. I updated the patient. She will be admitted for COPD exacerbation, with acute on chronic hypoxic respiratory failure. She intermittently requires slightly more oxygen than baseline, requiring 3 to 4 L other than 2 to 3 L nasal cannula oxygen. Will continue to monitor. Pulmonology consulted. She is given a single dose of IV Lasix as she does have some increased leg swelling but otherwise we will continue with her home oral Lasix. Will continue with IV steroids as well as breathing treatments. No antibiotics are indicated at this time. I spoke with the admitting provider, Dr. Malhotra of [facility] who accepted the admission. Undiagnosed new problem with uncertain prognosis? @ -No Drug Therapy requiring intensive monitoring for toxicity (Heparin, Nitro, Insulin, Cardizem)? @ -No Were any procedures done? @ -No Diagnosis/symptom? @ -COPD exacerbation, acute on chronic hypoxic respiratory failure Acute, or Chronic, or Acute on Chronic? @ -Acute Uncomplicated (without systemic symptoms) or Complicated (systemic symptoms)? @ -Complicated Side effects of treatment? @ -No Exacerbation, Progression, or Severe Exacerbation? @ -No Poses a threat to life or bodily function? How? (Chest pain, [place], MT, pneumonia, PE, COPD, DKA, ARF, appy, cholecystitis, CVA, Diverticulitis, Homicidal, Suicidal, threat to staff... and all critical care pts) @ -Potentially, yes - Lab Data Result diagrams: 11/01/24 15:25 11/01/24 15:25 Lab Results 11/01/24 11/01/24 11/01/24 Range/Units 15:25 15:25 15:25 WBC 8.13 (4.50-10.00) 10*3/uL RBC 3.98 L (4.10-5.20) 10*6/uL Hgb 10.1 L (12.0-15.0) g/dL Hct 35.1 L (37.2-46.3) % MCV 88.2 (80.0-97.0) fL MCH 25.4 L (27.0-32.0) pg MCHC 28.8 L (32.0-37.0) g/dL Plt Count 229 (140-440) 10*3/uL MPV 10.3 (9.5-12.2) fL Immature Gran % (Auto) 0.1 % Neutrophils % 69.1 % Lymphocytes % 16.1 % Monocytes % 11.1 % Eosinophils % 3.0 % Basophils % 0.6 % Immature Gran # 0.01 (0.00-0.04) 10*3/uL Neutrophils # 5.62 (1.80-7.70) 10*3/uL Lymphocytes # 1.31 (0.90-5.00) 10*3/uL Monocytes # 0.90 (0.20-1.00) 10*3/uL Eosinophils # 0.24 (0.04-0.35) 10*3/uL Basophils # 0.05 (0.00-0.10) 10*3/uL PT 10.6 (10.0-12.5) sec INR 0.9 (<1.2) APTT 24.2 (22.0-30.0) sec Sodium 136 L (137-145) mmol/L Potassium 4.0 (3.5-5.1) mmol/L Chloride 85 L (98-107) mmol/L Carbon Dioxide 46 H* (22-30) mmol/L Anion Gap 5 mmol/L BUN 20 H (7-17) mg/dL Creatinine 0.79 (0.52-1.04) mg/dL Est GFR (CKD-EPI)AfAm 81 (>60 ml/min/1.73 sqM) Est GFR (CKD-EPI)NonAf 71 (>60 ml/min/1.73 sqM) Glucose 110 H (74-99) mg/dL Plasma Lactic Acid George (0.7-2.0) mmol/L Calcium 8.9 (8.4-10.2) mg/dL Magnesium 1.8 (1.6-2.3) mg/dL Total Bilirubin 0.6 (0.2-1.3) mg/dL AST 23 (14-36) U/L ALT 15 (4-34) U/L Alkaline Phosphatase 71 (38-126) U/L NT-Pro-B Natriuret Pep 576 pg/mL Total Protein 6.1 L (6.3-8.2) g/dL Albumin 3.6 (3.5-5.0) g/dL Urine RBC (0-5) /hpf Urine WBC (0-5) /hpf Ur Squamous Epith Cells (0-4) /hpf Urine Bacteria (None) /hpf Hyaline Casts (0-2) /lpf Urine Mucus (None) /hpf Influenza Type A (PCR) (Not Detectd) Influenza Type B (PCR) (Not Detectd) RSV (PCR) (Not Detectd) SARS-CoV-2 (PCR) (Not Detectd) 11/01/24 11/01/24 11/01/24 Range/Units 15:25 15:41 15:41 WBC (4.50-10.00) 10*3/uL RBC (4.10-5.20) 10*6/uL Hgb (12.0-15.0) g/dL Hct (37.2-46.3) % MCV (80.0-97.0) fL MCH (27.0-32.0) pg MCHC (32.0-37.0) g/dL Plt Count (140-440) 10*3/uL MPV (9.5-12.2) fL Immature Gran % (Auto) % Neutrophils % % Lymphocytes % % Monocytes % % Eosinophils % % Basophils % % Immature Gran # (0.00-0.04) 10*3/uL Neutrophils # (1.80-7.70) 10*3/uL Lymphocytes # (0.90-5.00) 10*3/uL Monocytes # (0.20-1.00) 10*3/uL Eosinophils # (0.04-0.35) 10*3/uL Basophils # (0.00-0.10) 10*3/uL PT (10.0-12.5) sec INR (<1.2) APTT (22.0-30.0) sec Sodium (137-145) mmol/L Potassium (3.5-5.1) mmol/L Chloride (98-107) mmol/L Carbon Dioxide (22-30) mmol/L Anion Gap mmol/L BUN (7-17) mg/dL Creatinine (0.52-1.04) mg/dL Est GFR (CKD-EPI)AfAm (>60 ml/min/1.73 sqM) Est GFR (CKD-EPI)NonAf (>60 ml/min/1.73 sqM) Glucose (74-99) mg/dL Plasma Lactic Acid George 0.8 (0.7-2.0) mmol/L Calcium (8.4-10.2) mg/dL Magnesium (1.6-2.3) mg/dL Total Bilirubin (0.2-1.3) mg/dL AST (14-36) U/L ALT (4-34) U/L Alkaline Phosphatase (38-126) U/L NT-Pro-B Natriuret Pep pg/mL Total Protein (6.3-8.2) g/dL Albumin (3.5-5.0) g/dL Urine RBC <1 (0-5) /hpf Urine WBC 2 (0-5) /hpf Ur Squamous Epith Cells 7 H (0-4) /hpf Urine Bacteria Few H (None) /hpf Hyaline Casts 3 H (0-2) /lpf Urine Mucus Rare H (None) /hpf Influenza Type A (PCR) Not Detected (Not Detectd) Influenza Type B (PCR) Not Detected (Not Detectd) RSV (PCR) Not Detected (Not Detectd) SARS-CoV-2 (PCR) Not Detected (Not Detectd) - EKG Data -: EKG Interpreted by Me EKG Comments: 12-lead Electrocardiogram Interpretation Note EKG was reviewed and interpreted by myself. 12-lead ECG performed at 1525 is interpreted by me as revealing atrial fibrillation at a rate of 80 beats per minute. [place] is normal. QRS durations 97 ms, QTc is 391 ms.. There were no ST or T wave abnormalities to suggest myocardial ischemia or injury. R wave progression across the precordium was satisfactory. By my interpretation this EKG is non-diagnostic for acute ischemia. Disposition Clinical Impression: COPD exacerbation, Acute on chronic hypoxic respiratory failure Disposition: ADMITTED IP TO THIS HOSP Condition: Stable Referrals: Garcia Gonzalez III, MD [Primary Care Provider] - 1-2 days Time of Disposition: 16:50
[2024-11-01] MEDS: FUROSEMIDE 10 MG/ML 4 ML VIAL IV STA (17:03)
[2024-11-01 17:04] LABS: Bilirubin,Urine Negative (Negative); Blood,Urine Trace (Negative); Color,Urine Colorless; Glucose,Urine (UA) Negative (Negative); Ketones,Urine Negative (Negative); Leukocyte Esterase,Urine Negative (Negative); Nitrite,Urine Negative (Negative); PH, Urine 7.0 (5.0-8.0); Protein,Urine Negative (Negative); Specific Gravity,Urine 1.011 (1.001-1.035); Urobilinogen,Urine <2.0 mg/dL (<2.0)
[2024-11-01] MEDS: IPRATROPIUM-ALBUTEROL 3 ML NEB INHALATION SCH ×2 (17:09→20:12)
[2024-11-01] MEDS: PANTOPRAZOLE 40 MG/10 ML VIAL IVP SCH (17:34)
[2024-11-01] MEDS ORDERED: IPRATROPIUM-ALBUTEROL 3 ML NEB INHALATION SCH (20:00)
[2024-11-01] MEDS: SYMBICORT 160-4.5 MCG INHALER INHALATION SCH (20:12)
[2024-11-01] MEDS: DONEPEZIL 5 MG TAB PO SCH (22:29)
[2024-11-01] MEDS: HEPARIN SODIUM,PORCINE 5,000 UNIT/ML 1 ML VIAL SQ SCH (22:30)
[2024-11-01] MEDS: methylPREDNISolone SOD SUCCI 40 MG/ML 1 ML VIAL IV SCH (23:52)
--- NOTE | 2024-11-02 05:43 | P.CNPUL ---
History of Present Illness Consult date: 11/02/24 Requesting physician: Jonas Red Reason for consult: COPD Chief complaint: dyspnea History of present illness: Patient is an 84-year-old male with past medical history significant for COPD and heart failure. Also, may have some baseline dementia. Recently, hospitalized earlier this month for combination of acute COPD and CHF exacerbation. Briefly intubated to the mechanical ventilator. Discharged home on October 11. She is living at [place]. Return to the emergency department yesterday afternoon complaining of shortness of breath. Her COPD was felt to be an exacerbation, she was given multiple DuoNeb treatments as well as loaded with IV Solu-Medrol. She did receive a one-time dose of Lasix 40 mg IV push. Workup in the ED including a chest x-ray which did not show any acute cardiopulmonary process. Labs including a CBC with a WBC count of 8.1, hemoglobin 10.1, pl atelets 229. CMP with a sodium 136, potassium 4, chloride 85, serum bicarb 46, BUN 20, creatinine 0.79, glucose 110. Lactic 0.8. Normal saline infusing at 75 mm/h. NT proBNP only 576. Urinalysis unremarkable for infection. Viral 4 Plex negative for influenza A/B, RSV, COVID. Patient currently being seen on the general medical floor. Alert and oriented to person and time, no signs of CO2 narcosis. Questionable historian. She is resting comfortably on 2 L/min nasal cannula which she wears at home. Not in any respiratory distress. Endorsing increased work of breathing as well as a cough with phlegm production. Denies hemoptysis. Denies chest pain. Denies fevers or chills. Denies nausea, vomiting, diarrhea. Denies chest pain, heart palpitations, syncopal events, orthopnea. She does have some pitting lower extremity edema. States she is feeling better than on presentation. Review of Systems REVIEW OF SYSTEMS: CONSTITUTIONAL: Denies any recent significant weight loss or weight gain. EYES: Denies change in vision. EARS, NOSE, MOUTH, THROAT: Denies headaches, denies sore throat. CARDIOVASCULAR: Denies chest pain, palpitations or syncopal episodes. RESPIRATORY: See HPI GASTROINTESTINAL: Denies change in appetite, abdominal pain, nausea and vomiting, or diarrhea GENITOURINARY: Denies hematuria, denies infections. MUSKULOSKELETAL: Denies pain, denies swelling. INTEGUMENTARY: Denies rash, denies eczema. NEUROLOGICAL: Denies recent memory loss, no recent seizure activity. PSYCHIATRIC: Denies anxiety, denies depression. HEMATOLOGIC/LYMPHATIC: Denies anemia, denies enlarged lymph node Past Medical History Past Medical History: Atrial Fibrillation, Heart Failure, COPD, Dementia History of Any Multi-Drug Resistant Organisms: Unobtainable Past Surgical History: Hysterectomy Past Anesthesia/Blood Transfusion Reactions: No Reported Reaction Past Psychological History: Anxiety, Depression Smoking Status: Former smoker Past Alcohol Use History: Unable to Obtain Past Drug Use History: Unable to Obtain Medications and Allergies Home Medications Medication Instructions Recorded Confirmed Type Donepezil [Aricept] 5 mg PO HS@199910/05/24 11/01/24 History Potassium Chloride ER [K-Dur 10] 10 meq PO DAILY@79910/05/24 11/01/24 History Albuterol Inhaler [Ventolin Hfa 2 puff INHALATION RT-Q6H PRN 11/01/24 11/01/24 History Inhaler] Budesonide-Formot 160-4.5 Mcg 2 puff INHALATION RT-BID@11/01/24 11/01/24 History [Symbicort 160-4.5 Mcg Inhaler] Furosemide [Lasix] 40 mg PO DAILY@79911/01/24 11/01/24 History Pantoprazole Sodium [Protonix] 20 mg PO DAILY@79911/01/24 11/01/24 History Allergies Allergy/AdvReac Type Severity Reaction Status Date / Time No Known Allergies Allergy Verified 10/05/24 20:27 Physical Exam Vitals: Vital Signs Temp Pulse Pulse Resp BP BP Pulse Ox 11/01/24 23:55 97.5 F L 78 17 133/60 93 L 11/01/24 22:35 98.9 F 99 18 140/52 98 11/01/24 20:24 93 11/01/24 20:13 90 11/01/24 18:00 90 20 169/68 92 L 11/01/24 17:14 76 20 169/68 94 L 11/01/24 16:02 20 11/01/24 16:01 85 18 11/01/24 15:55 71 18 11/01/24 15:42 82 20 169/68 98 11/01/24 15:21 66 16 169/68 98 11/01/24 15:16 98.3 F 65 20 169/68 96 Intake and Output 11/01/24 11/01/24 11/02/24 14:59 22:59 06:59 Intake Total 240 Balance 240 Intake: Oral 240 Other: Voiding Method Bedside Commode Weight 63.458 kg 63.458 kg GENERAL EXAM: Alert, 84-year-old female, without signs of CO2 narcosis, comfortable in no apparent distress. HEAD: Normocephalic and atraumatic EYES: Normal reaction of pupils, equal size. NOSE: Clear with pink turbinates. THROAT: No erythema or exudates. NECK: No masses, no JVD. CHEST: No chest wall deformity. LUNGS: Equal air entry with markedly diminished lung sounds bilaterally throughout. No crackles, wheeze, rhonchi or dullness. On 2 L/min nasal can nula. No conversational dyspnea or accessory muscle use.. CVS: S1 and S2 normal with no audible murmur, regular rhythm. No extra heart sounds ABDOMEN: No hepatosplenomegaly, active bowel sounds, no guarding or rigidity. SPINE: No scoliosis or deformity SKIN: No rashes CENTRAL NERVOUS SYSTEM: No focal deficits, tone is normal in all 4 extremities. EXTREMITIES: There is 2+ bilateral lower extremity edema. Abdominal clubbing or cyanosis. Peripheral pulses are intact. Results - Laboratory Findings CBC and BMP: 11/01/24 15:25 11/01/24 15:25 PT/INR, D-dimer PT 10.6 sec (10.0-12.5) 11/01/24 15:25 INR 0.9 (<1.2) 11/01/24 15:25 Abnormal lab findings: Abnormal Labs 11/01/24 11/01/24 11/01/24 15:25 15:25 15:41 RBC 3.98 L Hgb 10.1 L Hct 35.1 L MCH 25.4 L MCHC 28.8 L Sodium 136 L Chloride 85 L Carbon Dioxide 46 H* BUN 20 H Glucose 110 H Total Protein 6.1 L Urine Blood Trace H Ur Squamous Epith Cells 7 H Urine Bacteria Few H Hyaline Casts 3 H Urine Mucus Rare H - Diagnostic Findings Chest x-ray: image reviewed Assessment and Plan Assessment: Acute COPD exacerbation Acute on chronic dyspnea, secondary to above Chronic hypoxemic respiratory failure, maintained on 2 L/min nasal cannula at home Metabolic alkalosis History of ventilator dependent respiratory failure during recent hospitalization earlier this month History of heart failure with unknown ejection fraction Bilateral lower extremity edema History of dementia, on Aricept Plan: Currently resting comfortably on 2 L/min nasal cannula, which she wears at home Patient's medications, labs, chest x-ray reviewed No focal infiltrates or evidence of pneumonia Viral 4 Plex negative for influenza A/B, C, COVID NT-proBNP only 576 Home dose of Lasix has been previously restarted Continue combination of DuoNeb treatments poloir-akq-nucor, Symbicort inhaler, and IV Solu-Medrol We will continue to follow I have personally seen and examined the patient, performed the documentation and the assessment and plan as written. Number of minutes spent on the visit:20 Time with Patient: Greater than 30
[2024-11-02 08:12] LABS: Glucose,Whole Blood 122 mg/dL (70-110)
[2024-11-02] MEDS: FUROSEMIDE 40 MG TAB PO SCH (08:19)
[2024-11-02] MEDS: POTASSIUM CHLORIDE ER 10 MEQ TAB.ER.PRT PO SCH (08:20)
[2024-11-02 08:22] LABS: Basophils # (A) 0 X 10*3/uL (0.00-0.10); Basophils % (A) 0 %; Eosinophils # (A) 0 X 10*3/uL (0.04-0.35); Eosinophils % (A) 0 %; HCT 32.0 % (37.2-46.3); HGB 8.7 g/dL (12.0-15.0); Immature Grans, Automated 0.20 %; Lymphocytes # (A) 0.27 X 10*3/uL (0.90-5.00); Lymphocytes % (A) 5.4 %; MCH 24.7 pg (27.0-32.0); MCHC 27.2 g/dL (32.0-37.0); MCV 90.9 FL (80.0-97.0); Monocytes # (A) 0.06 X 10*3/uL (0.20-1.00); Monocytes % (A) 1.2 %; NRBC Per 100 WBC 0 X 10*3/uL (0.00-0.01); Neutrophils # (A) 4.67 X 10*3/uL (1.80-7.70); Neutrophils % (A) 93.2 %; Platelet Count 229 X 10*3/uL (140-440); RBC 3.52 X 10*6/uL (4.10-5.20); RDW 16.6 % (11.5-14.5); WBC 5.01 X 10*3/uL (4.50-10.00)
[2024-11-02] MEDS: ZINC OXIDE PASTE (Z-GUARD) 1 APPLIC TOPICAL PRN (08:30)
[2024-11-02 09:28] LABS: ALT 21 U/L (8-44); AST 23 U/L (13-35); Albumin 3.5 g/dL (3.8-4.9); Albumin/Globulin Ratio 1.94 Ratio (1.60-3.17); Alkaline Phosphatase 62 U/L (41-126); Anion Gap 6.40 mmol/L (4.00-12.00); BUN/Creat Ratio 22.60 Ratio (12.00-20.00); Blood Urea Nitrogen 22.6 mg/dL (9.0-27.0); Calcium 8.8 mg/dL (8.7-10.3); Carbon Dioxide 42.6 mmol/L (21.6-31.8); Chloride 88 mmol/L (96-109); Globulin 1.8 g/dL (1.6-3.3); Glucose 197 mg/dL (70-110); Potassium 4.1 mmol/L (3.5-5.5); Sodium 137 mmol/L (135-145); Total Protein 5.3 g/dL (6.2-8.2)
[2024-11-02] MEDS: predniSONE 10 MG TAB PO SCH (11:57)
[2024-11-02 12:12] LABS: Glucose,Whole Blood 280 mg/dL (70-110)
[2024-11-02 12:46] VITALS: BP 119/76; PULSE 90; RESP 20; TEMP 97.7
--- NOTE | 2024-11-02 12:49 | HP ---
HISTORY AND PHYSICAL CHIEF COMPLAINT: Not feeling well. HISTORY OF PRESENT ILLNESS: This 84-year-old woman with a past medical history of multiple medical issues of atrial fibrillation, CHF, COPD, admitted to [facility] with complaints of not feeling well. The patient just came to the ER. The white count is normal. CO2 is 46. US did not show any acute abnormality. The evaluation is in progress, which is not complete. Chest x-ray showed no acute abnormality. The patient will be admitted for further evaluation and treatment. There is no history of any fever, rigors, or chills at this time. PAST MEDICAL HISTORY: Atrial fibrillation, CHF, COPD, and dementia. Rest of the history and chart are also reviewed. HOME MEDICATION: Reviewed. Included K-Dur 10. Rest of medications . ALLERGIES: None. FAMILY HISTORY: No history of heart disease or strokes in the family. SOCIAL HISTORY: No history of smoking or alcohol. REVIEW OF SYSTEMS: 14-point review of systems negative except as mentioned earlier. PHYSICAL EXAMINATION: VITAL SIGNS: Pulse is 82, blood pressure 116/60, and respirations 20. HEENT: Conjunctivae normal. NECK: No JVD. CARDIOVASCULAR: S1, S2. RESPIRATIONS: Breath sounds diminished. ABDOMEN: Soft. EXTREMITIES: Legs, no edema NERVOUS SYSTEM: Nonfocal. LABORATORY DATA: Reviewed. ASSESSMENT: 1. Weakness, possible dehydration. 2. Rule out upper respiratory infection. 3. Atrial fibrillation. 4. History of congestive heart failure. 5. Chronic obstructive pulmonary disease. 6. Dementia. 7. Multiple medical issues. RECOMMENDATIONS: This 84-year-old woman presented with multiple complex medical issues. We will monitor the patient closely. Continue the current condition. I would recommend empiric IV fluids. Continue to monitor. Obtain a set of blood cultures. Resume the home medications once they are confirmed. We will follow the patient closely. Prognosis guarded. Further recommendations to follow. MMODL / IJN: [id number] / MTDD
[2024-11-02 14:12] VITALS: BMI 22.6
== END 2024-11-02 16:10 | disposition home health service (06) ==
LOC: EC 15:14 → 4SSUR 16:52 → 5NMEDONC 17:50
PROVIDERS: ADMIT Hospitalist; ATTEND Hospitalist
DX: J44.1 Chronic obstructive pulmonary disease with (acute) exacerbation (principal); J96.21 Acute and chronic respiratory failure with hypoxia; E87.3 Alkalosis; I48.91 Unspecified atrial fibrillation; F03.90 Unspecified dementia, unspecified severity, without behavioral disturbance, psychotic disturbance, mood disturbance, and anxiety; I50.9 Heart failure, unspecified; R35.89 Other polyuria; R53.1 Weakness; D64.9 Anemia, unspecified; Z79.51 Long term (current) use of inhaled steroids; Z79.899 Other long term (current) drug therapy; Z11.52 Encounter for screening for COVID-19; Z11.59 Encounter for screening for other viral diseases; Z87.891 Personal history of nicotine dependence
CPT/HCPCS: 96376 ×2; 96361; 96372 ×2; 96374; 96375; 99285; 36415; 94640 ×3; 94760; 93005; 83880; 80053 ×2; 83605; 83735; 85025 ×2; 85610; 85730; 81001; 87040; 87636; 71046; G0378 ×3; J1644 ×2; J7512; J2919 ×3; J2470 ×2; J1938